=== PATIENT | female | born 1950 | race Caucasian/White ===

== ENCOUNTER 2021-03-31 10:24 | Inpatient (IN) | payer MEDICARE, SELFPAY ==
[2021-03-31] VITALS (8 sets, daily range): BP systolic 81–152; BP diastolic 56–82; PULSE 61–91; RESP 14–28; TEMP 36.3–36.8; O2SAT 94–99; BMI 33.1
--- NOTE | ~2021-03-31 | XR_ITS ---
EXAMINATION: XR CHEST CLINICAL INFORMATION: Weakness. COMPARISON: None TECHNIQUE: Frontal view of the chest was obtained. FINDINGS: No significant abnormality is noted involving the heart, lungs, mediastinum, bony thorax or soft tissues. XR/XR chest 1V IMPRESSION: Unremarkable chest examination.
--- NOTE | ~2021-03-31 | US_ITS ---
EXAMINATION: US ABDOMEN COMPLETE CLINICAL INFORMATION: Vomiting, weakness, abnormal LFTs. COMPARISON: CT scan of the abdomen and pelvis dated 03/31/2021. TECHNIQUE: Real-time imaging of the abdominal viscera. FINDINGS: PANCREAS: Normal. ABDOMINAL AORTA: The proximal, mid, and distal segments are normal in caliber. INFERIOR VENA CAVA: Visualized portions are normal. LIVER: There is a 0.9 x 0.8 x 0.8 cm simple cyst in the right lobe of the liver The liver is normal in size. The liver contour is normal. Parenchymal echogenicity is normal. No focal hepatic lesion. There is no intrahepatic biliary duct dilatation seen. GALLBLADDER: The gallbladder is poorly visualized and is replaced by the wall echo shadow sign in the right upper quadrant, suspicious for multiple calcified gallstones. The gallbladder is physiologically distended without evidence of stones, sludge, polyps, wall thickening or pericholecystic fluid. COMMON BILE DUCT: Normal in caliber measuring 0.6 cm in diameter. RIGHT KIDNEY: Slight fullness of the renal pelvis is seen. No hydronephrosis. No renal calculi or focal parenchymal lesions. The kidney measures 11.5 cm in maximum dimension. LEFT KIDNEY: Slight fullness of the renal pelvis is seen. No hydronephrosis. No renal calculi or focal parenchymal lesions. The kidney measures 11.3 cm in maximum dimension. SPLEEN: Normal. The spleen measures 12.7 cm in maximum dimension. FREE FLUID: None. US/US abdomen complete IMPRESSION: 1. Multiple gallstones are seen within a contracted gallbladder producing a wall echo shadow sign. No gallbladder wall thickening or very cholecystic fluid is demonstrated to suspect acute inflammation. Clinical correlation requested. 2. No evidence of biliary dilatation. 3. Small cyst in right lobe of the liver. 4. Slight fullness of the renal pelvis bilaterally without hydronephrosis seen.
--- NOTE | ~2021-03-31 | CT_ITS ---
EXAMINATION: CT ABDOMEN AND PELVIS WITHOUT CONTRAST CLINICAL INFORMATION: vomiting, weakness, JACINTO r/o obstruction . COMPARISON: No pertinent prior studies are available for comparison. TECHNIQUE: Multidetector volumetric imaging was performed from the superior aspect of the liver through the pubic symphysis without contrast per request. Sagittal and coronal reformatted images were obtained on the technologist workstation. This CT examination was performed using dose optimization techniques as appropriate, variously including the following: *Automated exposure control *Adjustment of mA and/or kV according to patient size (this includes techniques or standardized protocols for targeted exams where dose is matched to indication/reason for exam; i.e. extremities or head) *Use of iterative reconstruction technique DLP: 858 mGy-cm. FINDINGS: LUNG BASES: The visualized lung bases are unremarkable. LIVER, GALLBLADDER, BILIARY TREE: The non-contrast liver is normal in size, shape, and attenuation. Low-attenuation probable cyst in the lateral right lobe the liver difficult to define further on this study but otherwise no suspicious focal hepatic lesion or biliary ductal dilatation is present. The gallbladder is unremarkable with no evidence of radiopaque gallstones, gallbladder wall thickening, or obvious pericholecystic inflammatory changes. PANCREAS: Unremarkable. SPLEEN: Unremarkable. ADRENAL GLANDS: Unremarkable. KIDNEYS AND URETERS: The kidneys are normal in size, shape, and attenuation. No hydronephrosis, hydroureter, or calculi seen. No perinephric stranding. BLADDER: Unremarkable. GASTROINTESTINAL TRACT: Scattered colonic diverticulosis but no evidence for diverticulitis. No colonic wall thickening or pericolonic inflammatory changes. Normal-appearing appendix. Visualized small bowel unremarkable. ABDOMINAL WALL: Small fat-containing umbilical hernia LYMPHOVASCULAR STRUCTURES: Mild vascular calcification within the aorta iliac system. No bulky adenopathy. PELVIC VISCERA: Lobulated contour to the uterus suggesting probable posterior fibroid OSSEUS STRUCTURES: Degenerative changes in the spine more so at L4/5. There is more significant endplate sclerosis, volume loss and vacuum phenomena CT/CT abdomen pelvis wo con IMPRESSION: Chronic appearing changes as described. I do not appreciate any acute intra-abdominal process.
--- NOTE | 2021-03-31 11:02 | ECG_ITS ---
Test Reason : HYPOTENSION Blood Pressure : / mmHG Vent. Rate : 075 BPM Atrial Rate : 075 BPM P-R Int : 212 ms QRS Dur : 094 ms QT Int : 386 ms P-R-T Axes : 078 -29 017 degrees QTc Int : 431 ms Sinus rhythm with 1st degree A-V block Otherwise normal ECG No previous ECGs available Referred By: Susie Lopez Electronically Signed By:ALANA RACHEL
--- NOTE | 2021-03-31 11:03 | ED_ITS ---
HPI - Nausea/Vomiting/Diarrhea General Chief complaint: Nausea/Vomiting/Diarrhea Stated complaint: vomiting/diarrea Time Seen by Provider: 03/31/21 11:01 Source: patient Mode of arrival: ambulatory History of Present Illness HPI Narrative: 71 yo female otherwise healthy has been on bactrim for 4 days for possible UTI, 2 weeks ago had a self limiting GI illness, also had tick on her for a day 1 month ago, she comes in after 4 days of nausea, vomiting, weakness, constipation, headaches, feels very weak and lightheaded this AM MD elicited complaint: nausea and vomiting Pertinent past history: other (recent UTI on bactrim x 4 days, bit by tick 1 month ago) Onset (ago): day(s) (4) Description of vomiting: food contents and watery Associated nausea: Yes Associated abdominal pain: No Severity: severe Exacerbating factors: eating Relieving factors: none Context: recent antibiotic use Associated symptoms: myalgias, fever/chills, headaches, loss of appetite, ma laise, nausea/vomiting and weakness Related Data Allergies Allergy/AdvReac Type Severity Reaction Status Date / Time Milk Containing Products Allergy Vomiting Verified 03/31/21 10:58 Review of Systems 2 Review of Systems: Constitutional : No Weight loss, No Fever, pos Chills ENT/Mouth : No sore throat, No Rhinorrhea Eyes: No Swelling, No Redness Cardiovascular : No Chest Pain, No SOB, NoEdema Respiratory : No Cough, No Sputum, No Wheezing Gastrointestinal : Positive Nausea, Positive Vomiting, no Diarrhea, no abdominal Pain, No Hematochezia, No Melena, pos constipation Genitourinary : No Dysuria, No Urinary Frequency, No Hematuria, No Urgency Musculoskeletal : No joint pain, No Myalgias, No Joint Swelling Skin : No Skin Lesions, No rash Neuro : pos Weakness, No Numbness, pos Dizziness, pos Headache Psych : No Anxiety/Panic, No Depression Heme/Lymph: No Bruising, No Lymphadenopathy Endocrine : No Polyuria, No Polydipsia All other systems reviewed and are negative. Gastrointestinal: Gastrointestinal: Reports nausea PMFSH Past Medical History Attestation statement: The following information was validated with the patient. Medical History No known health problems Osteoarthritis UTI (urinary tract infection) Surgical History (Updated 03/31/21 @ 11:21 by Susie Lopez DO) History of total bilateral knee replacement (TKR) Social History Social History (Updated 03/31/21 @ 11:21 by Susie Lopez DO) Alcohol intake: never Patient Tobacco Use Status: Never used Tobacco Use of substances other than those prescribed or required for medical reasons: No Advance Directives: Yes Advance Directives Information Provided: Yes Advance Directives on File: No Physical Exam Vital Signs: Vital Signs: Last Vital Signs Temp 98.2 F 03/31/21 12:42 Pulse 84 03/31/21 12:42 Resp 26 H 03/31/21 12:42 BP 146/65 H 03/31/21 12:42 Pulse Ox 99 03/31/21 12:42 Body Mass Index 33.1 Appearance: Alert. Oriented X3. Mild acute distress. Eyes: Pupils equal, round and reactive to light. ENT: Pharynx dry MMM Neck: Normal inspection. Neck supple. CVS: Normal heart rate and rhythm. Pulses normal. Respiratory: No respiratory distress. Breath sounds normal. Abdomen: Soft and non-tender. Skin: Skin warm and dry. pale skin color. Normal skin turgor. Extremities: No lower extremity edema. No calf ttp Neuro: Oriented X 3. No motor deficit. No sensory deficit. Course Course Course Narrative: UA negative for infection, CXR negative, dehydrated, US of liver pending given the degree of belching/nausea she is having will obtain CT scan to r/o obstruction as well negative CT scan for obstruction or stone - US likely to provide benefit she is still nauseated with emesis in ED repeat medications, admit for further management at this time 217pm no obvious source of infection her LFTs, JACINTO likely related to dehydration and not infection or severe sepsis. gallstones on US message sent to Dr. Skelton to review, again the patient has no abdominal pain MDM - Nausea/Vomiting/Diarrhea MDM Narrative Medical decision making narrative: 71 yo female otherwise healthy has been on bactrim for 4 days for possible UTI, 2 weeks ago had a self limiting GI illness, also had tick on her for a day 1 month ago, she comes in after 4 days of nausea, vomiting, weakness, constipation, headaches, feels very weak and lightheaded this AM at this time could be resistant UTI vs dehydration vs JACINTO - will obtain labs, EKG, IVF 30cc/kg bolus, tick panel, EKG, no abdominal pain to suggest acute intra abdominal infection, already had COVID and has had her 2 vaccines, dispo per results and findings. Lab Data Result diagrams: 03/31/21 11:42 03/31/21 11:42 Labs: Lab Results 03/31/21 03/31/21 03/31/21 Range/Units 11:42 11:42 11:42 WBC 5.3 (4.8-10.8) X10*3/uL RBC 4.51 (4.20-5.50) X10*6/uL Hgb 12.8 (12.0-16.0) g/dl Hct 37.4 (37-47) % MCV 82.9 (80-98) fL MCH 28.4 (27.0-33.0) pg MCHC 34.2 (31.0-35.0) g/dl RDW 14.5 (11.0-16.0) % Plt Count 217 (160-400) X10*3/uL MPV 9.2 L (9.4-12.3) fL Immature Gran % (Auto) 0.6 H (0.0-0.4) % Neut % (Auto) 88.3 H (45-73) % Lymph % (Auto) 6.4 L (20-40) % [place] % (Auto) 4.3 (2-11) % Eos % (Auto) 0.4 (0-4) % Baso % (Auto) 0.0 (0-2) % Lymph # (Auto) 0.3 L (1.2-4.9) X10*3/uL [place] # (Auto) 0.2 (0.1-1.2) X10*3/uL Eos # (Auto) 0.0 (0.0-0.4) X10*3/uL Baso # (Auto) 0.0 (0.0-0.2) X10*3/uL Abs Immat Gran (auto) 0.03 (0.00-0.03) X10*3/uL Absolute Neuts (auto) 4.7 (2.0-8.3) X10*3/uL Absolute Nucleated RBC 0.000 (0.0-0.012) X10*3/uL Nucleated RBC % (auto) 0.0 (0.0-0.2) /100WBC Smear Tech's Comments VERIFIED PT 13.6 H (10.8-13.0) SEC INR 1.1 (0.9-1.1) APTT 30.6 (24.1-38.0) SEC Sodium 136 (135-145) mmol/L Potassium 3.9 (3.3-5.1) mmol/L Chloride 104 (96-108) mmol/L Carbon Dioxide 18 L (22-29) mmol/L Anion Gap 18 (12-20) BUN 35 H (9-16) mg/dL Creatinine 2.12 H (0.5-1.4) mg/dL Estim Creat Clear Calc 29.0 Estimated GFR 23 Random Glucose 112 (60-115) mg/dL Lactic Acid (0.5-2.0) mmol/L Lactic Acid Fup @ 2Hr (0.5-2.0) mmol/L Calcium 8.3 L (8.4-10.2) mg/dL Magnesium 2.1 (1.6-2.6) mg/dL Total Bilirubin 2.1 H (0.0-1.0) mg/dL Direct Bilirubin 1.6 H (0.0-0.5) mg/dL AST 124 H (5-31) U/L ALT 130 H (0-31) U/L Alkaline Phosphatase 303 H (39-117) U/L Troponin I High Sens (<3.5-17.0) ng/L Total Protein 6.6 (6.5-8.0) g/dL Albumin 3.2 L (3.5-5.0) g/dL Lipase 20 (8-78) U/L Urine Color Urine Appearance Urine pH (5.0-8.0) Ur Specific [place] (1.005-1.025) Urine Protein (NEG-TRACE) MG/DL Urine Glucose (UA) (NEG) MG/DL Urine Ketones (NEG) MG/DL Urine Blood (NEG) Urine Nitrite (NEG) Ur Leukocyte Esterase (NEG) Urine RBC (0) /HPF Urine WBC (0-4) /HPF Ur Squamous Epith Cells /LPF Amorphous Sediment /LPF Urine Bacteria /LPF Granular Casts /LPF Other Casts /LPF COVID-19 (GABRIELA) (Negative) COVID-19 Clin Com 06/20/21 06/20/21 06/20/21 Range/Units 11:42 11:42 11:44 WBC (4.8-10.8) X10*3/uL RBC (4.20-5.50) X10*6/uL Hgb (12.0-16.0) g/dl Hct (37-47) % MCV (80-98) fL MCH (27.0-33.0) pg MCHC (31.0-35.0) g/dl RDW (11.0-16.0) % Plt Count (160-400) X10*3/uL MPV (9.4-12.3) fL Immature Gran % (Auto) (0.0-0.4) % Neut % (Auto) (45-73) % Lymph % (Auto) (20-40) % [place] % (Auto) (2-11) % Eos % (Auto) (0-4) % Baso % (Auto) (0-2) % Lymph # (Auto) (1.2-4.9) X10*3/uL [place] # (Auto) (0.1-1.2) X10*3/uL Eos # (Auto) (0.0-0.4) X10*3/uL Baso # (Auto) (0.0-0.2) X10*3/uL Abs Immat Gran (auto) (0.00-0.03) X10*3/uL Absolute Neuts (auto) (2.0-8.3) X10*3/uL Absolute Nucleated RBC (0.0-0.012) X10*3/uL Nucleated RBC % (auto) (0.0-0.2) /100WBC Smear Tech's Comments PT (10.8-13.0) SEC INR (0.9-1.1) APTT (24.1-38.0) SEC Sodium (135-145) mmol/L Potassium (3.3-5.1) mmol/L Chloride (96-108) mmol/L Carbon Dioxide (22-29) mmol/L Anion Gap (12-20) BUN (9-16) mg/dL Creatinine (0.5-1.4) mg/dL Estim Creat Clear Calc Estimated GFR Random Glucose (60-115) mg/dL Lactic Acid 2.9 H* (0.5-2.0) mmol/L Lactic Acid Fup @ 2Hr (0.5-2.0) mmol/L Calcium (8.4-10.2) mg/dL Magnesium (1.6-2.6) mg/dL Total Bilirubin (0.0-1.0) mg/dL Direct Bilirubin (0.0-0.5) mg/dL AST (5-31) U/L ALT (0-31) U/L Alkaline Phosphatase (39-117) U/L Troponin I High Sens < 3.5 (<3.5-17.0) ng/L Total Protein (6.5-8.0) g/dL Albumin (3.5-5.0) g/dL Lipase (8-78) U/L Urine Color Urine Appearance Urine pH (5.0-8.0) Ur Specific [place] (1.005-1.025) Urine Protein (NEG-TRACE) MG/DL Urine Glucose (UA) (NEG) MG/DL Urine Ketones (NEG) MG/DL Urine Blood (NEG) Urine Nitrite (NEG) Ur Leukocyte Esterase (NEG) Urine RBC (0) /HPF Urine WBC (0-4) /HPF Ur Squamous Epith Cells /LPF Amorphous Sediment /LPF Urine Bacteria /LPF Granular Casts /LPF Other Casts /LPF COVID-19 (GABRIELA) Negative (Negative) COVID-19 Clin Com See Note 03/31/21 03/31/21 Range/Units 11:58 14:21 WBC (4.8-10.8) X10*3/uL RBC (4.20-5.50) X10*6/uL Hgb (12.0-16.0) g/dl Hct (37-47) % MCV (80-98) fL MCH (27.0-33.0) pg MCHC (31.0-35.0) g/dl RDW (11.0-16.0) % Plt Count (160-400) X10*3/uL MPV (9.4-12.3) fL Immature Gran % (Auto) (0.0-0.4) % Neut % (Auto) (45-73) % Lymph % (Auto) (20-40) % [place] % (Auto) (2-11) % Eos % (Auto) (0-4) % Baso % (Auto) (0-2) % Lymph # (Auto) (1.2-4.9) X10*3/uL [place] # (Auto) (0.1-1.2) X10*3/uL Eos # (Auto) (0.0-0.4) X10*3/uL Baso # (Auto) (0.0-0.2) X10*3/uL Abs Immat Gran (auto) (0.00-0.03) X10*3/uL Absolute Neuts (auto) (2.0-8.3) X10*3/uL Absolute Nucleated RBC (0.0-0.012) X10*3/uL Nucleated RBC % (auto) (0.0-0.2) /100WBC Smear Tech's Comments PT (10.8-13.0) SEC INR (0.9-1.1) APTT (24.1-38.0) SEC Sodium (135-145) mmol/L Potassium (3.3-5.1) mmol/L Chloride (96-108) mmol/L Carbon Dioxide (22-29) mmol/L Anion Gap (12-20) BUN (9-16) mg/dL Creatinine (0.5-1.4) mg/dL Estim Creat Clear Calc Estimated GFR Random Glucose (60-115) mg/dL Lactic Acid (0.5-2.0) mmol/L Lactic Acid Fup @ 2Hr 1.5 (0.5-2.0) mmol/L Calcium (8.4-10.2) mg/dL Magnesium (1.6-2.6) mg/dL Total Bilirubin (0.0-1.0) mg/dL Direct Bilirubin (0.0-0.5) mg/dL AST (5-31) U/L ALT (0-31) U/L Alkaline Phosphatase (39-117) U/L Troponin I High Sens (<3.5-17.0) ng/L Total Protein (6.5-8.0) g/dL Albumin (3.5-5.0) g/dL Lipase (8-78) U/L Urine Color DARK YELLOW Urine Appearance HAZY Urine pH 6.0 (5.0-8.0) Ur Specific [place] 1.020 (1.005-1.025) Urine Protein 1+ H (NEG-TRACE) MG/DL Urine Glucose (UA) 100 H (NEG) MG/DL Urine Ketones 5 (NEG) MG/DL Urine Blood TRACE (NEG) Urine Nitrite NEG (NEG) Ur Leukocyte Esterase NEG (NEG) Urine RBC 1-4 (0) /HPF Urine WBC 0 (0-4) /HPF Ur Squamous Epith Cells TRACE /LPF Amorphous Sediment 3+ /LPF Urine Bacteria TRACE /LPF Granular Casts 1-4 /LPF Other Casts 5-9 /LPF COVID-19 (GABRIELA) (Negative) COVID-19 Clin Com ECG Data Attestation: I personally reviewed and interpreted this ECG as follows: ECG interpretation date: 03/31/21 ECG interpretation time: 11:28 Interpretation: Rate: 75 Rhythm: NSR with 1st degree AVB [place]: left Normal P waves. 1st degree AVB Normal QRS complex. ST T wave : normal no TIM qTC: normal prior studies: no acute ischemia The study has been interpreted contemporaneously by me. . Critical Care Time Critical Care Time Critical Care Time: Yes Total Critical Care Time: 35 Attestation: 3L of IVF, resuscitation of hypotension Discharge Plan Discharge Clinical Impression: Vomiting, Acute dehydration, JACINTO (acute kidney injury), Acidosis, lactic, Abnormal LFTs, Gallstones Patient Disposition: Admitted As Inpatient
[2021-03-31] MEDS: ondansetron HCL 4 MG/2 ML VIAL IVPUSH ×2 (11:25→18:29)
[2021-03-31 11:52] LABS: Eosinophils Percent Auto 0.4 % (0-4); Hematocrit 37.4 % (37-47); Hemoglobin 12.8 g/dl (12.0-16.0); Imm Gran Abs Auto 0.03 X10*3/uL (0.00-0.03); Imm Gran Pct Auto 0.6 % (0.0-0.4); Lymphocytes Absolute Auto 0.3 X10*3/uL (1.2-4.9); Lymphocytes Percent Auto 6.4 % (20-40); MANUAL DIFF FLAG SCAN; Mean Corpuscular HGB Conc 34.2 g/dl (31.0-35.0); Mean Corpuscular Hemoglobin 28.4 pg (27.0-33.0); Mean Corpuscular Volume 82.9 fL (80-98); Mean Platelet Volume 9.2 fL (9.4-12.3); Monocytes Absolute Auto 0.2 X10*3/uL (0.1-1.2); Monocytes Percent Auto 4.3 % (2-11); Neutrophils Absolute Auto 4.7 X10*3/uL (2.0-8.3); Neutrophils Percent Auto 88.3 % (45-73); Platelet Count 217 X10*3/uL (160-400); Red Blood Count 4.51 X10*6/uL (4.20-5.50); Red Cell Distribution Width 14.5 % (11.0-16.0); SCAN SMEAR FLAG 1; White Blood Count 5.3 X10*3/uL (4.8-10.8)
[2021-03-31 12:01] LABS: INTERNATIONAL NORM RATIO 1.1 (0.9-1.1); Prothrombin Time 13.6 SEC (10.8-13.0)
[2021-03-31 12:04] LABS: Partial Thromboplastin Time 30.6 SEC (24.1-38.0)
[2021-03-31 12:07] LABS: COVID-19 Test Negative (Negative)
[2021-03-31 12:10] LABS: SLIDE REVIEW VERIFIED
[2021-03-31 12:21] LABS: Troponin-I High Sensitivity < 3.5 ng/L (<3.5-17.0)
[2021-03-31 12:22] LABS: Glucose Urine UA 100 MG/DL (NEG); Leukocyte Esterase Urine NEG (NEG); Nitrite Urine NEG (NEG); Urine Blood TRACE (NEG); Urine Ketones 5 MG/DL (NEG); Urine Protein 1+ MG/DL (NEG-TRACE)
[2021-03-31 12:24] LABS: Appearance Urine HAZY; Color Urine DARK YELLOW
[2021-03-31 12:27] LABS: Alanine Aminotransferase 130 U/L (0-31); Albumin Level 3.2 g/dL (3.5-5.0); Alkaline Phosphatase 303 U/L (39-117); Aspartate Amino Transferase 124 U/L (5-31); Bilirubin Direct 1.6 mg/dL (0.0-0.5); Bilirubin Total 2.1 mg/dL (0.0-1.0); Lipase 20 U/L (8-78); Magnesium 2.1 mg/dL (1.6-2.6); Total Protein 6.6 g/dL (6.5-8.0)
[2021-03-31 12:28] LABS: Lactic Acid 2.9 mmol/L (0.5-2.0)
[2021-03-31 12:35] LABS: Amorphous Sediment Urine 3+ /LPF; Bacteria Urine TRACE /LPF; Squamous Epithelial Cell Urine TRACE /LPF; WBC Urine 0 /HPF (0-4)
[2021-03-31 12:57] LABS: Anion Gap 18 (12-20); Blood Urea Nitrogen 35 mg/dL (9-16); Calcium 8.3 mg/dL (8.4-10.2); Carbon Dioxide 18 mmol/L (22-29); Chloride 104 mmol/L (96-108); Estimated Glomerular Filt Rate 23; Glucose Random 112 mg/dL (60-115); Potassium 3.9 mmol/L (3.3-5.1); Sodium 136 mmol/L (135-145)
[2021-03-31 13:48] LABS: Reflex Lactate? Lactic Acid Added
[2021-03-31] MEDS: diphenhydrAMINE HCL 50 MG/ML VIAL 25 MG IVPUSH (14:41)
[2021-03-31] MEDS: Metoclopramide HCl 10 MG/2 ML VIAL 5 MG IVPUSH (14:41)
[2021-03-31 14:45] LABS: ~Lactic Acid-LAB USE ONLY 1.5 mmol/L (0.5-2.0)
--- NOTE | 2021-03-31 15:31 | PM.IMHP ---
History of Present Illness Date of Service: 03/31/21 Chief Complaint: Nausea, vomiting This is a 71-year-old healthy female who presents to the emergency department with nausea and vomiting. Last ThursdayMarch 27 the patient was seen by her hazardous substances scientist. At that time she described some dysuria and was prescribed Bactrim for presumed UTI. Later that day she had a cheeseburger from [employer]. That evening she took her 1st dose of Bactrim. Since then she has had significant nausea and vomiting preventing her from tolerating any food or much to drink. She denies abdominal pain, reporting that she has generalized soreness in abdomen. She has had low-grade fever intermittently. She denies any diarrhea. She has no sick contacts. Of note she had a shorter GI illness a few weeks ago last approximately 24-48 hours. In addition she is concern because she had a tick bite approximately 1 month ago. Today she was feeling weak and lightheaded and this prompted her to come to the emergency department for evaluation. On arrival she was hypotensive with a blood pressure in 80s. Lab work was significant for creatinine of 2.12, lactic acid 2.9, elevated liver enzymes. She had repeat urinalysis which appears showed resolution of UTI. Her dysuria has improved as well. CT scan of the abdomen did not show any acute intra-abdominal process. She also had a abdominal ultrasound, results of which are pending at this time. She received 30 cc/kg bolus of normal saline with resolution of her lactic acidosis. She received Zofran, Benadryl, Reglan for her nausea and vomiting and has improved somewhat. Review of Systems Review of Systems: Yes all other systems are reviewed and are negative Constitutional: Constitutional: Denies chills Cardiovascular: Cardiovascular: Denies chest pain Respiratory: Respiratory: Denies cough Gastrointestinal: Gastrointestinal: Reports constipation, Denies diarrhea, Reports nausea and Reports vomiting Genitourinary: Genitourinary: Denies dysuria and Denies urinary incontinence [facility] Medical History No known health problems Osteoarthritis UTI (urinary tract infection) Functional capacity: independent ambulation Family History Father Heart disease Mother CHF (congestive heart failure) Family history: reviewed and not pertinent Surgical History History of total bilateral knee replacement (TKR) Social History Alcohol intake: never Patient Tobacco Use Status: Never used Tobacco Use of substances other than those prescribed or required for medical reasons: No Advance Directives: Yes Advance Directives Information Provided: Yes Advance Directives on File: No Meds Allergies Allergy/AdvReac Type Severity Reaction Status Date / Time Milk Containing Products Allergy Vomiting Verified 03/31/21 10:58 Physical Exam Vital Signs and Narrative: Vital Signs: Last Vital Signs Temp 98.2 F 03/31/21 12:42 Pulse 84 03/31/21 12:42 Resp 26 H 03/31/21 12:42 BP 146/65 H 03/31/21 12:42 Pulse Ox 99 03/31/21 12:42 Body Mass Index 33.1 Const: Nutritional Appearance: well nourished Orientation/consciousness: patient oriented x3 HENMT: Head: Yes normocephalic and Yes atraumatic Eyes: Sclerae: sclerae normal Chest: Chest palpation & inspection: normal inspection of the chest Resp: Effort & Inspection: normal respiratory effort and no respiratory distress Cardio: Rate: regular rate Rhythm: regular rhythm GI: Inspection: No distended Palpation (GI): Soft to palpation, nontender and no guarding Neuro: General: patient oriented x3 Cranial nerves: Yes CN's II-XII intact bilaterally and Yes Bilaterally intact EOM present Results Labs CBC and Chem 7: 03/31/21 11:42 03/31/21 11:42 Labs: Laboratory Results - last 24 hr 03/31/21 03/31/21 03/31/21 11:42 11:42 11:42 MCV 82.9 MCH 28.4 MCHC 34.2 RDW 14.5 Plt Count 217 MPV 9.2 L Immature Gran % (Auto) 0.6 H Neut % (Auto) 88.3 H Lymph % (Auto) 6.4 L [place] % (Auto) 4.3 Eos % (Auto) 0.4 Baso % (Auto) 0.0 Lymph # (Auto) 0.3 L [place] # (Auto) 0.2 Eos # (Auto) 0.0 Baso # (Auto) 0.0 Abs Immat Gran (auto) 0.03 Absolute Neuts (auto) 4.7 Absolute Nucleated RBC 0.000 Nucleated RBC % (auto) 0.0 Smear Tech's Comments VERIFIED PT 13.6 H INR 1.1 APTT 30.6 Anion Gap 18 Estim Creat Clear Calc 29.0 Estimated GFR 23 Random Glucose 112 Lactic Acid Lactic Acid Fup @ 2Hr Calcium 8.3 L Magnesium 2.1 Total Bilirubin 2.1 H Direct Bilirubin 1.6 H AST 124 H ALT 130 H Alkaline Phosphatase 303 H Troponin I High Sens Total Protein 6.6 Albumin 3.2 L Lipase 20 Urine Color Urine Appearance Urine pH Ur Specific [place] Urine Protein Urine Glucose (UA) Urine Ketones Urine Blood Urine Nitrite Ur Leukocyte Esterase Urine RBC Urine WBC Ur Squamous Epith Cells Amorphous Sediment Urine Bacteria Granular Casts Other Casts COVID-19 (GABRIELA) COVID-[employer] 03/31/21 03/31/21 03/31/21 11:42 11:42 11:44 MCV MCH MCHC RDW Plt Count MPV Immature Gran % (Auto) Neut % (Auto) Lymph % (Auto) [place] % (Auto) Eos % (Auto) Baso % (Auto) Lymph # (Auto) [place] # (Auto) Eos # (Auto) Baso # (Auto) Abs Immat Gran (auto) Absolute Neuts (auto) Absolute Nucleated RBC Nucleated RBC % (auto) Smear Tech's Comments PT INR APTT Anion Gap Estim Creat Clear Calc Estimated GFR Random Glucose Lactic Acid 2.9 H* Lactic Acid Fup @ 2Hr Calcium Magnesium Total Bilirubin Direct Bilirubin AST ALT Alkaline Phosphatase Troponin I High Sens < 3.5 Total Protein Albumin Lipase Urine Color Urine Appearance Urine pH Ur Specific [place] Urine Protein Urine Glucose (UA) Urine Ketones Urine Blood Urine Nitrite Ur Leukocyte Esterase Urine RBC Urine WBC Ur Squamous Epith Cells Amorphous Sediment Urine Bacteria Granular Casts Other Casts COVID-19 (GABRIELA) Negative COVID-19 frooly Com See Note 03/31/21 03/31/21 11:58 14:21 MCV MCH MCHC RDW Plt Count MPV Immature Gran % (Auto) Neut % (Auto) Lymph % (Auto) [place] % (Auto) Eos % (Auto) Baso % (Auto) Lymph # (Auto) [place] # (Auto) Eos # (Auto) Baso # (Auto) Abs Immat Gran (auto) Absolute Neuts (auto) Absolute Nucleated RBC Nucleated RBC % (auto) Smear Tech's Comments PT INR APTT Anion Gap Estim Creat Clear Calc Estimated GFR Random Glucose Lactic Acid Lactic Acid Fup @ 2Hr 1.5 Calcium Magnesium Total Bilirubin Direct Bilirubin AST ALT Alkaline Phosphatase Troponin I High Sens Total Protein Albumin Lipase Urine Color DARK YELLOW Urine Appearance HAZY Urine pH 6.0 Ur Specific [place] 1.020 Urine Protein 1+ H Urine Glucose (UA) 100 H Urine Ketones 5 Urine Blood TRACE Urine Nitrite NEG Ur Leukocyte Esterase NEG Urine RBC 1-4 Urine WBC 0 Ur Squamous Epith Cells TRACE Amorphous [place] 3+ Urine Bacteria TRACE Granular Casts 1-4 Other Casts 5-9 COVID-19 (GABRIELA) COVID-19 Clin Com Imaging Radiologist's Impressions: Impressions Chest X-Ray 03/31/21 12:40 IMPRESSION: Unremarkable chest examination. Abdomen/Pelvis CT 03/31/21 13:24 IMPRESSION: Chronic appearing changes as described. I do not appreciate any acute intra-abdominal process. Assessment and Plan (1) Vomiting: Qualifiers: Nausea presence: with nausea Vomiting Intractability: intractable Vomiting type: unspecified Qualified Code(s): R11.2 - Nausea with vomiting, unspecified Status: Acute (2) Abnormal LFTs: Status: Acute (3) Gallstones: Status: Acute (4) JACINTO (acute kidney injury): Status: Acute This is a 71-year-old healthy female who presents the emergency department with 4 days of nausea, vomiting found to have JACINTO, lactic acidosis, abnormal LFTs and gallstones. Intractable nausea and vomiting CT abdomen with no cause of symptoms ?antibiotic related abdominal US showing gallstones but no evidence of cholecystitis -supportive care -clear liquid diet, advanced as tolerated -IV fluid -general surgery eval JACINTO No baseline labs for comparison. Patient denies history of CKD CT abdomen shows no evidence of obstruction Likely pre renal secondary to dehydration, vomiting as well as recent Bactrim use -IV fluid -avoid nephrotoxins -follow BMP Elevated LFTs No baseline for comparison. No history of liver disease CT scan of abdomen unremarkable -follow LFTs UTI Has taken 4 days of Bactrim (although has been vomiting) Symptoms have improved. UA today not suggestive of infection CT abdomen shows no perinephric stranding or concern for pyelonephritis Will hold off on further antibiotics at this time Recent tick bit -tickborne panel pending DVT prophylaxis-renally dosed Lovenox Code status-full code Healthcare proxy - Ivan Attending: Dr. Emery Quality Stroke Does the patient have a stroke diagnosis?: No VTE Prior VTE?: No VTE Risk Level:: Medical - moderate - high VTE Device Contraindication: Treatment Not Tolerated VTE Drug Contraindication: N/A - Med Ordered
[2021-03-31] MEDS: Acetaminophen 325 MG TABLET 650 MG PO (15:49)
--- NOTE | 2021-03-31 16:07 | PC.NURSE ---
pt resting quietly in bed, at bedside. Hospitalist spoke with pt regarding admit to hospital for further work up. pt aware she is waiting for a bed assignment at this time. pt continues to report stomach discomfort. Tylenol 650 mg given for 4/10 headache and pt requested juice. No vomiting at this time.
--- NOTE | 2021-03-31 17:13 | PM.EVENT ---
Event Note Date of Service: 03/31/21 Event Note: addendum to H+P by PHILLIP Gomez I interviewed and examined the patient. I discussed their presentation and management with the mid-level provider. I reviewed the history and physical and agree with the documentation, with the following additions and corrections: 71yo F with no chronic conditions, no chronic medications. Seen by her HEALTH THERAPIST 03/27 and prescribed SMX/TMP for UTI [she had been experiencing some dysuria]. Soon after taking her 1st dose, she has had nausea and vomiting. No real abd pain, just soreness from the heaving. Unable to tolerate much of anything PO; not drinking much more than 6 ounces of fluid a day. Ended up taking 4 days of the SMX/TMP. Endorses lightheadedness and found on presentation to the ED to be hypotensive with SBP 80s, with lactic acidosis [LA 2.9], transaminitis/cholestasis with AST 124, ALT 130, Tbili 2.1, and alk phos 303. She had a deer tick on her arm about 1 month ago that was embedded but not engorged, estimated maximum time of attachment 12 hr. On exam, she is well-appearing and in no distress. Oral mucosa somewhat dry. BP 135/61. Abdomen completely soft with negative Breaux sign. Impression is of drug-induced liver injury likely due to SMX/TMP, with pre-renal JACINTO from vomiting. Plan IV fluid hydration and monitor CMP and avoid SMX/TMP.
[2021-03-31] MEDS: 0.9 % Sodium Chloride Flush 3 ML SYRINGE IVFLUSH (17:59)
[2021-03-31] MEDS: Lactated Ringers 1,000 ML 100 ML IVCONT (17:59)
[2021-03-31] MEDS: Enoxaparin Sodium 30 MG/0.3 ML SYRINGE SUBCUT (20:35)
[2021-03-31] MEDS: traZODone HCL 25 MG HALFTAB PO (21:11)
[2021-04-01] MEDS: Lactated Ringers 1,000 ML 100 ML IVCONT ×3 (03:39→23:08)
[2021-04-01] MEDS: Acetaminophen 325 MG TABLET 650 MG PO (03:44)
[2021-04-01 04:00] VITALS: BP 153/84; PULSE 69; RESP 18; TEMP 36.3; O2SAT 97
[2021-04-01 06:15] LABS: Hematocrit 34.8 % (37-47); Hemoglobin 11.4 g/dl (12.0-16.0); Mean Corpuscular HGB Conc 32.8 g/dl (31.0-35.0); Mean Corpuscular Hemoglobin 27.7 pg (27.0-33.0); Mean Corpuscular Volume 84.7 fL (80-98); Mean Platelet Volume 9.1 fL (9.4-12.3); Platelet Count 158 X10*3/uL (160-400); Red Blood Count 4.11 X10*6/uL (4.20-5.50); Red Cell Distribution Width 14.9 % (11.0-16.0); White Blood Count 5.4 X10*3/uL (4.8-10.8)
[2021-04-01 06:43] LABS: Alanine Aminotransferase 110 U/L (0-31); Albumin Level 2.9 g/dL (3.5-5.0); Alkaline Phosphatase 289 U/L (39-117); Anion Gap 11 (12-20); Aspartate Amino Transferase 93 U/L (5-31); Bilirubin Direct 1.2 mg/dL (0.0-0.5); Bilirubin Total 1.4 mg/dL (0.0-1.0); Blood Urea Nitrogen 24 mg/dL (9-16); Calcium 8.1 mg/dL (8.4-10.2); Carbon Dioxide 23 mmol/L (22-29); Chloride 107 mmol/L (96-108); Creatinine Clr Calc Pharmacy 43.9; Estimated Glomerular Filt Rate 37; Glucose Random 104 mg/dL (60-115); Potassium 3.9 mmol/L (3.3-5.1); Sodium 137 mmol/L (135-145); Total Protein 5.7 g/dL (6.5-8.0)
[2021-04-01 08:00] VITALS: BP 140/60; PULSE 76; RESP 18; TEMP 36; O2SAT 95
--- NOTE | 2021-04-01 09:36 | PM.CNGS ---
History of Present Illness Consult details Consult date: 04/01/21 Narrative: [age] year female referred for gallstones. She states that she had been having a lot of nausea and vomiting since about 4 days prior to admission. She says she has had poor oral intake for that period of time. She says she was in usual state of health prior to that and started taking Bactrim because of a urinary tract infection. She states that right after she started taking the oral Bactrim, she had this recurrent episodes of nausea and vomiting and dry heaving. This persisted and she eventually came to the emergency room last night. She does feel better this morning. Her main complaint now is a bad headache. She says she never really had any abdominal pain. She denies any pain or tenderness in right upper quadrant or epigastric area. She describes discomfort in the abdomen from the retching. She with signs of dehydration and had done mildly elevated lactate at 2.9. Review of Systems Constitutional: Constitutional: Denies chills and Denies fever(s) Cardiovascular: Cardiovascular: Denies chest pain, Denies dyspnea and Denies dyspnea on exertion Respiratory: Respiratory: Denies cough, Denies dyspnea and Denies dyspnea on exertion Gastrointestinal: Gastrointestinal: Denies hematochezia and Denies change in bowel habits Genitourinary: Genitourinary: Denies hematuria Musculoskeletal: Musculoskeletal: Denies back pain and Denies limited range of motion Neurologic: Denies focal weakness and Denies convulsions Psychiatric: Psychiatric: Denies depression and Denies mood swings PMFSH Past Medical History Medical History No known health problems Osteoarthritis UTI (urinary tract infection) Functional capacity: independent ambulation Family History Family History Father Heart disease Mother CHF (congestive heart failure) Family history: reviewed and not pertinent Surgical History Surgical History History of total bilateral knee replacement (TKR) Social History Social History Household Members: Spouse Housing: House Do you presently have visiting nurse or other home services: No Alcohol intake: never Patient Tobacco Use Status: Never used Tobacco Use of substances other than those prescribed or required for medical reasons: No Currently Displaying Signs/Symptoms of Drug Intoxication Withdrawal: No Have you been hit, kicked, punched, or otherwise hurt by someone within the past year? If so, by whom?: No Do you feel safe in your current relationship?: Yes Is there a partner from a previous relationship who is making you feel unsafe now?: No Are you made to feel afraid or neglected: No Advance Directives: Yes Advance Directives Information Provided: Yes Advance Directives on File: No Advance Directives Date on File: 03/31/21 Do you have thoughts of harming others: None Do you have a plan to hurt others: No Plan Recently lost weight without trying: No Nutrition Risks: No Nutritional Risk Meds Allergies Allergy/AdvReac Type Severity Reaction Status Date / Time Milk Containing Products Allergy Vomiting Verified 03/31/21 10:58 Active Medications: Current Medications Generic Name Dose Route Start Last Admin Trade Name Freq PRN Reason Stop Dose Admin Acetaminophen 650 mg 03/31/21 17:48 04/01/21 03:44 Acetaminophen 325 Mg Tablet PO 650 mg Q6H PRN Administration Pain, Mild (Pain Scale 1-3) Docusate Sodium 100 mg 03/31/21 17:48 Docusate Sodium 100 Mg Capsule PO DAILY PRN Constipation Enoxaparin Sodium 30 mg 03/31/21 20:00 03/31/21 20:35 Enoxaparin Sodium 30 Mg/0.3 Ml Syringe SUBCUT 30 mg Q24H LAURI Administration Lactated Ringer's 1,000 mls @ 100 mls/hr 03/31/21 17:48 04/01/21 03:39 Lr IVCONT 100 mls/hr .Q10H LAURI Administration Ondansetron HCl 4 mg 03/31/21 17:48 03/31/21 18:29 Ondansetron Hcl 4 Mg/2 Ml Vial IVPUSH 4 mg Q8H PRN Administration Nausea and Vomiting Sodium Chloride 3 ml 03/31/21 17:48 04/01/21 07:15 0.9 % Sodium Chloride Flush 3 Ml Syringe IVFLUSH Not Given QSHIFT [facility] Home Medications Medication Instructions Recorded Confirmed Last Taken Type No Known Home Meds 03/31/21 03/31/21 Unknown History Physical Exam Vital Signs: Vital Signs: Last Vital Signs Temp 96.8 F 04/01/21 08:00 Pulse 76 04/01/21 08:00 Resp 18 04/01/21 08:00 BP 140/60 H 04/01/21 08:00 Pulse Ox 95 04/01/21 08:00 Body Mass Index 33.1 Const: General: comfortable and no acute distress Orientation/consciousness: patient oriented x3 Neck: Neck: Yes no lymphadenopathy Resp: Auscultation: clear to auscultation bilaterally Cardio: Rhythm: regular rhythm GI: Other: No Breaux's sign Palpation (GI): Soft to palpation, nontender and no guarding Neuro: General: patient oriented x3 Results Labs Result diagrams: 04/01/21 06:02 04/01/21 06:02 Labs: Abnormal lab results 03/31/21 03/31/21 03/31/21 Range/Units 11:42 11:42 11:42 RBC (4.20-5.50) X10*6/uL Hgb (12.0-16.0) g/dl Hct (37-47) % Plt Count (160-400) X10*3/uL MPV 9.2 L (9.4-12.3) fL Immature Gran % (Auto) 0.6 H (0.0-0.4) % Neut % (Auto) 88.3 H (45-73) % Lymph % (Auto) 6.4 L (20-40) % Lymph # (Auto) 0.3 L (1.2-4.9) X10*3/uL PT 13.6 H (10.8-13.0) SEC Carbon Dioxide 18 L (22-29) mmol/L Anion Gap (12-20) BUN 35 H (9-16) mg/dL Creatinine 2.12 H (0.5-1.4) mg/dL Lactic Acid (0.5-2.0) mmol/L Calcium 8.3 L (8.4-10.2) mg/dL Total Bilirubin 2.1 H (0.0-1.0) mg/dL Direct Bilirubin 1.6 H (0.0-0.5) mg/dL AST 124 H (5-31) U/L ALT 130 H (0-31) U/L Alkaline Phosphatase 303 H (39-117) U/L Total Protein (6.5-8.0) g/dL Albumin 3.2 L (3.5-5.0) g/dL Urine Protein (NEG-TRACE) MG/DL Urine Glucose (UA) (NEG) MG/DL 03/31/21 03/31/21 04/01/21 Range/Units 11:42 11:58 06:02 RBC 4.11 L (4.20-5.50) X10*6/uL Hgb 11.4 L (12.0-16.0) g/dl Hct 34.8 L (37-47) % Plt Count 158 L D (160-400) X10*3/uL MPV 9.1 L (9.4-12.3) fL Immature Gran % (Auto) (0.0-0.4) % Neut % (Auto) (45-73) % Lymph % (Auto) (20-40) % Lymph # (Auto) (1.2-4.9) X10*3/uL PT (10.8-13.0) SEC Carbon Dioxide (22-29) mmol/L Anion Gap (12-20) BUN (9-16) mg/dL Creatinine (0.5-1.4) mg/dL Lactic Acid 2.9 H* (0.5-2.0) mmol/L Calcium (8.4-10.2) mg/dL Total Bilirubin (0.0-1.0) mg/dL Direct Bilirubin (0.0-0.5) mg/dL AST (5-31) U/L ALT (0-31) U/L Alkaline Phosphatase (39-117) U/L Total Protein (6.5-8.0) g/dL Albumin (3.5-5.0) g/dL Urine Protein 1+ H (NEG-TRACE) MG/DL Urine Glucose (UA) 100 H (NEG) MG/DL 04/01/21 Range/Units 06:02 RBC (4.20-5.50) X10*6/uL Hgb (12.0-16.0) g/dl Hct (37-47) % Plt Count (160-400) X10*3/uL MPV (9.4-12.3) fL Immature Gran % (Auto) (0.0-0.4) % Neut % (Auto) (45-73) % Lymph % (Auto) (20-40) % Lymph # (Auto) (1.2-4.9) X10*3/uL PT (10.8-13.0) SEC Carbon Dioxide (22-29) mmol/L Anion Gap 11 L (12-20) BUN 24 H (9-16) mg/dL Creatinine (0.5-1.4) mg/dL Lactic Acid (0.5-2.0) mmol/L Calcium 8.1 L (8.4-10.2) mg/dL Total Bilirubin 1.4 H (0.0-1.0) mg/dL Direct Bilirubin 1.2 H (0.0-0.5) mg/dL AST 93 H (5-31) U/L ALT 110 H (0-31) U/L Alkaline Phosphatase 289 H (39-117) U/L Total Protein 5.7 L (6.5-8.0) g/dL Albumin 2.9 L (3.5-5.0) g/dL Urine Protein (NEG-TRACE) MG/DL Urine Glucose (UA) (NEG) MG/DL Short CBC 03/31/21 04/01/21 Range/Units 11:42 06:02 WBC 5.3 5.4 (4.8-10.8) X10*3/uL Hgb 12.8 11.4 L (12.0-16.0) g/dl Hct 37.4 34.8 L (37-47) % Plt Count 217 158 L D (160-400) X10*3/uL BMP 03/31/21 04/01/21 04/01/21 11:42 06:02 06:02 Sodium 136 Cancelled 137 Potassium 3.9 Cancelled 3.9 Chloride 104 Cancelled 107 Carbon Dioxide 18 L Cancelled 23 BUN 35 H Cancelled 24 H Creatinine 2.12 H Cancelled 1.40 Calcium 8.3 L Cancelled 8.1 L Liver Function 03/31/21 04/01/21 Range/Units 11:42 06:02 Total Bilirubin 2.1 H 1.4 H (0.0-1.0) mg/dL Direct Bilirubin 1.6 H 1.2 H (0.0-0.5) mg/dL AST 124 H 93 H (5-31) U/L ALT 130 H 110 H (0-31) U/L Alkaline Phosphatase 303 H 289 H (39-117) U/L Albumin 3.2 L 2.9 L (3.5-5.0) g/dL Urine 03/31/21 Range/Units 11:58 Urine Color DARK YELLOW Urine Appearance HAZY Urine pH 6.0 (5.0-8.0) Ur Specific [place] 1.020 (1.005-1.025) Urine Protein 1+ H (NEG-TRACE) MG/DL Urine Glucose (UA) 100 H (NEG) MG/DL All other labs normal. Imaging Abdomen CT scan report/results: report reviewed and image reviewed CT scan - pelvis: report reviewed and image reviewed Abdominal ultrasound report/results: report reviewed and image reviewed Assessment and Plan (1) Gallstones: Status: Acute She actually came in because of a 4 day history of nausea and vomiting. She denies any abdominal pain. She associates onset of nausea vomiting after starting oral antibiotics for a UTI tract infection. She does state that she has had similar problems with multiple oral medications in the past. She does not have any pain or tenderness on the epigastric area of the right upper quadrant area. Her labs are very atypical for gallbladder disease despite her gallstones on imaging studies. There is no evidence of any acute cholecystitis. Her elevated lactate on admission is likely secondary to her dehydration from poor oral intake and vomiting. Her LFTs are also mildly elevated although there is no suggestion of CBD obstruction on the CT scan. Her LFTs should be followed therefore. It does not appear that she needs any urgent surgical intervention. I will however follow along closely while she is in the hospital. The above was explained to her and her daughter at bedside. Procedures Date of Service Date of Service: 04/01/21
--- NOTE | 2021-04-01 10:12 | MHC.CM.PN ---
IMM 04/01/21, EMR REVIEWED, PT ADMITTED WITH JACINTO, VOMITING AND ACUTE DEHYDRATION, CM MET W/PT AND HER DTR WHO WAS IN PT'S ROOM, PT SELWYN TO ANSWER ALL QUESTIONS INDEPENDENTLY, PT REPORTS SHE LIVES W/, DTR, GDTR AND HER ELDERLY MOTHER WHO PT TAKES CARE OF, PT IS INDEPENDENT W/ALL CARE, NO DME & NO HOME SERVICES, PER PT SHE HAS NO CONCERNS ABOUT BEING ABLE TO CARE FOR SELF OR HER MOTHER, PT'S DTR IS FILLING IN [place] [facility] [place] PT DOES VERIFY PCP AND REPORTS SHE WOULD LIKE TO COMPLETE HCP PRIOR TO D/C. D/C PLAN: HOME SELF-CARE, FAMILY FOR TRANSPORT : CRISTIN JOHN [phone] DTR: AMIRAH JOHN CELL: [phone]
[2021-04-01] MEDS: ondansetron HCL 4 MG/2 ML VIAL IVPUSH ×2 (11:24→19:18)
[2021-04-01 11:55] VITALS: BP 162/75; PULSE 90; RESP 18; TEMP 36; O2SAT 96
--- NOTE | 2021-04-01 12:20 | HO.PM.IMPN ---
Subjective Subjective Date of Service: 04/01/21 Interval History: ongoing nausea; no vomiting tolerating clears frontal DUMONT; declines APAP Physical Exam Vital Signs: Vital Signs: Last Vital Signs Temp 96.8 F 04/01/21 11:55 Pulse 90 04/01/21 11:55 Resp 18 04/01/21 11:55 BP 162/75 H 04/01/21 11:55 Pulse Ox 96 04/01/21 11:55 Body Mass Index 33.1 Gen: in no acute distress HEENT: sclera anicteric, moist mucus membranes Neck: supple Lungs: clear to auscultation bilaterally Heart: regular rate and rhythm, no murmurs Abd: soft, non-tender, non-distended Ext: no edema Skin: warm/well-perfused Neuro: alert and oriented x3, no focal findings Psych: appropriate affect Objective Data Current Medications Generic Name Dose Route Start Last Admin Trade Name Freq PRN Reason Stop Dose Admin Acetaminophen 650 mg 03/31/21 17:48 04/01/21 03:44 Acetaminophen 325 Mg Tablet PO 650 mg Q6H PRN Administration Pain, Mild (Pain Scale 1-3) Docusate Sodium 100 mg 03/31/21 17:48 Docusate Sodium 100 Mg Capsule PO DAILY PRN Constipation Enoxaparin Sodium 30 mg 03/31/21 20:00 03/31/21 20:35 Enoxaparin Sodium 30 Mg/0.3 Ml Syringe SUBCUT 30 mg Q24H LAURI Administration Lactated Ringer's 1,000 mls @ 100 mls/hr 03/31/21 17:48 04/01/21 03:39 Lr IVCONT 100 mls/hr .Q10H LAURI Administration Ondansetron HCl 4 mg 03/31/21 17:48 04/01/21 11:24 Ondansetron Hcl 4 Mg/2 Ml Vial IVPUSH 4 mg Q8H PRN Administration Nausea and Vomiting Sodium Chloride 3 ml 03/31/21 17:48 04/01/21 07:15 0.9 % Sodium Chloride Flush 3 Ml Syringe IVFLUSH Not Given QSHIFT [facility] Labs CBC & Chem 7: 04/01/21 06:02 04/01/21 06:02 Labs: Laboratory Results - last 24 hr 03/31/21 03/31/21 03/31/21 11:42 11:42 11:42 WBC RBC Hgb Hct MCV MCH MCHC RDW Plt Count MPV Absolute Nucleated RBC Nucleated RBC % (auto) Sodium 136 Potassium 3.9 Chloride 104 Carbon Dioxide 18 L Anion Gap 18 BUN 35 H Creatinine 2.12 H Estim Creat Clear Calc 29.0 Estimated GFR 23 Random Glucose 112 Lactic Acid 2.9 H* Lactic Acid Fup @ 2Hr Calcium 8.3 L Magnesium 2.1 Total Bilirubin 2.1 H Direct Bilirubin 1.6 H AST 124 H ALT 130 H Alkaline Phosphatase 303 H Troponin I High Sens < 3.5 Total Protein 6.6 Albumin 3.2 L Lipase 20 Urine Color Urine Appearance Urine pH Ur Specific [place] Urine Protein Urine Glucose (UA) Urine Ketones Urine Blood Urine Nitrite Ur Leukocyte Esterase Urine RBC Urine WBC Ur Squamous Epith Cells Amorphous Sediment Urine Bacteria Granular Casts Other Casts 03/31/21 03/31/21 04/01/21 11:58 14:21 06:02 WBC 5.4 RBC 4.11 L Hgb 11.4 L Hct 34.8 L MCV 84.7 MCH 27.7 MCHC 32.8 RDW 14.9 Plt Count 158 L D MPV 9.1 L Absolute Nucleated RBC 0.000 Nucleated RBC % (auto) 0.0 Sodium Potassium Chloride Carbon Dioxide Anion Gap BUN Creatinine Estim Creat Clear Calc Estimated GFR Random Glucose Lactic Acid Lactic Acid Fup @ 2Hr 1.5 Calcium Magnesium Total Bilirubin Direct Bilirubin AST ALT Alkaline Phosphatase Troponin I High Sens Total Protein Albumin Lipase Urine Color DARK YELLOW Urine Appearance HAZY Urine pH 6.0 Ur Specific [place] 1.020 Urine Protein 1+ H Urine Glucose (UA) 100 H Urine Ketones 5 Urine Blood TRACE Urine Nitrite NEG Ur Leukocyte Esterase NEG Urine RBC 1-4 Urine WBC 0 Ur Squamous Epith Cells TRACE Amorphous Sediment 3+ Urine Bacteria TRACE Granular Casts 1-4 Other Casts 5-9 04/01/21 04/01/21 06:02 06:02 WBC RBC Hgb Hct MCV MCH MCHC RDW Plt Count MPV Absolute Nucleated RBC Nucleated RBC % (auto) Sodium Cancelled 137 Potassium Cancelled 3.9 Chloride Cancelled 107 Carbon Dioxide Cancelled 23 Anion Gap Cancelled 11 L BUN Cancelled 24 H Creatinine Cancelled 1.40 Estim Creat Clear Calc Cancelled 43.9 Estimated GFR Cancelled 37 Random Glucose Cancelled 104 Lactic Acid Lactic Acid Fup @ 2Hr Calcium Cancelled 8.1 L Magnesium Total Bilirubin 1.4 H Direct Bilirubin 1.2 H AST 93 H ALT 110 H Alkaline Phosphatase 289 H Troponin I High Sens Total Protein 5.7 L Albumin 2.9 L Lipase Urine Color Urine Appearance Urine pH Ur Specific [place] Urine Protein Urine Glucose (UA) Urine Ketones Urine Blood Urine Nitrite Ur Leukocyte Esterase Urine RBC Urine WBC Ur Squamous Epith Cells Amorphous Sediment Urine Bacteria Granular Casts Other Casts Quality Stroke Does the patient have a stroke diagnosis?: No VTE Prior VTE?: No VTE Risk Level:: Medical - moderate - high VTE Device Contraindication: Treatment Not Tolerated VTE Drug Contraindication: N/A - Med Ordered Assessment and Plan (1) JACINTO (acute kidney injury): Status: Acute (2) Drug-induced liver injury: Status: Acute Assessment and Plan: hospital d#2 71yo F with no chronic medical conditions presenting with nausea, vomiting, and PO intolerance after starting SMX/TMP prescribed for UTI admitted for hypotension, lactic acidosis, hepatitis, and JACINTO # JACINTO - improving, though unknown baseline SCr; continue IV hydration; likely renal injury due to SMX/TMP + prerenal azotemia from vomiting; monitor BMP # drug-induced liver injury - LFTs improving; avoid SMX/TMP in future; monitor LFTs # N/V - clear liquids, prn ondansestron, advance diet as tolerated # lactic acidosis - not septic; due to dehydration; resolved with fluid hydration # tick bite - approx 1 mo ago with attachment 12 hr or less, so very unlikely Lyme. Anaplasma/Babesia/Ehrlichia pending though likely her presention is explained by adverse reaction to SMX/TMP # gallstones - doubt cholecystitis; her symptoms are explained by adverse reaction to SMX/TMP # VTE ppx - LMWH
--- NOTE | 2021-04-01 15:38 | PC.NURSE ---
Skin assessment completed today. No skin issues noted.
[2021-04-01 15:53] VITALS: BP 150/70; PULSE 68; RESP 18; TEMP 36.2; O2SAT 95
[2021-04-01 19:46] VITALS: BP 166/74; PULSE 68; RESP 17; TEMP 36.8; O2SAT 95
[2021-04-01 21:37] LABS: Lyme Blot 5.93 index
[2021-04-02 00:02] VITALS: BP 138/99; PULSE 66; RESP 18; TEMP 36.3; O2SAT 96
[2021-04-02 04:00] VITALS: BP 133/60; PULSE 60; RESP 18; TEMP 36.8; O2SAT 94
[2021-04-02 06:44] LABS: Alanine Aminotransferase 109 U/L (0-31); Albumin Level 2.8 g/dL (3.5-5.0); Alkaline Phosphatase 294 U/L (39-117); Anion Gap 12 (12-20); Aspartate Amino Transferase 76 U/L (5-31); Blood Urea Nitrogen 16 mg/dL (9-16); Calcium 8.1 mg/dL (8.4-10.2); Carbon Dioxide 24 mmol/L (22-29); Chloride 106 mmol/L (96-108); Creatinine Clr Calc Pharmacy 64.2; Estimated Glomerular Filt Rate 57; Glucose Random 95 mg/dL (60-115); Magnesium 1.7 mg/dL (1.6-2.6); Potassium 3.6 mmol/L (3.3-5.1); Sodium 138 mmol/L (135-145); Total Protein 5.6 g/dL (6.5-8.0)
[2021-04-02 07:49] VITALS: BP 182/79; PULSE 62; RESP 18; TEMP 36.1; O2SAT 97
[2021-04-02] MEDS: Lactated Ringers 1,000 ML 100 ML IVCONT ×2 (08:40→18:08)
[2021-04-02] MEDS: ondansetron HCL 4 MG/2 ML VIAL IVPUSH ×2 (08:45→17:00)
--- NOTE | 2021-04-02 10:36 | HO.PM.IMPN ---
Subjective Subjective Date of Service: 04/02/21 Interval History: still nauseous and c/o H/A. vomited 1x yesterday. would like to try solids cautiously. no abd pain, just sore from vomiting Physical Exam Vital Signs: Vital Signs: Last Vital Signs Temp 96.9 F 04/02/21 07:49 Pulse 62 04/02/21 07:49 Resp 18 04/02/21 07:49 BP 182/79 H 04/02/21 07:49 Pulse Ox 97 04/02/21 07:49 Body Mass Index 33.1 Gen: tired HEENT: sclera anicteric, moist mucus membranes Neck: supple Lungs: clear to auscultation bilaterally Heart: regular rate and rhythm, no murmurs Abd: soft, non-tender, non-distended, normal active bowel sounds present Ext: no edema Skin: warm/well-perfused Neuro: alert and oriented x3, no focal findings Psych: appropriate affect Objective Data Current Medications Generic Name Dose Route Start Last Admin Trade Name Freq PRN Reason Stop Dose Admin Acetaminophen 650 mg 03/31/21 17:48 04/01/21 03:44 Acetaminophen 325 Mg Tablet PO 650 mg Q6H PRN Administration Pain, Mild (Pain Scale 1-3) Docusate Sodium 100 mg 03/31/21 17:48 Docusate Sodium 100 Mg Capsule PO DAILY PRN Constipation Enoxaparin Sodium 30 mg 03/31/21 20:00 04/01/21 20:48 Enoxaparin Sodium 30 Mg/0.3 Ml Syringe SUBCUT Not Given Q24H LAURI Lactated Ringer's 1,000 mls @ 100 mls/hr 03/31/21 17:48 04/02/21 08:40 Lr IVCONT 100 mls/hr .Q10H LAURI Administration Ondansetron HCl 4 mg 03/31/21 17:48 04/02/21 08:45 Ondansetron Hcl 4 Mg/2 Ml Vial IVPUSH 4 mg Q8H PRN Administration Nausea and Vomiting Sodium Chloride 3 ml 03/31/21 17:48 04/02/21 08:41 0.9 % Sodium Chloride Flush 3 Ml Syringe IVFLUSH Not Given QSHIFT [facility] Labs CBC & Chem 7: 04/01/21 06:02 04/02/21 05:53 Labs: Laboratory Results - last 24 hr 03/31/21 04/02/21 11:43 05:53 Sodium 138 Potassium 3.6 Chloride 106 Carbon Dioxide 24 Anion Gap 12 BUN 16 Creatinine 0.96 Estim Creat Clear Calc 64.2 Estimated GFR 57 Random Glucose 95 Calcium 8.1 L Magnesium 1.7 Total Bilirubin 1.0 AST 76 H ALT 109 H Alkaline Phosphatase 294 H Total Protein 5.6 L Albumin 2.8 L Lyme Progressive Test 5.93 H Microbiology Microbiology Results: Microbiology 03/31/21 11:50 Blood Culture - Preliminary Blood - Venous No growth after 24 hours. 03/31/21 11:44 Blood Culture - Preliminary Blood - Venous No growth after 24 hours. Quality Stroke Does the patient have a stroke diagnosis?: No VTE Prior VTE?: No VTE Risk Level:: Medical - moderate - high VTE Device Contraindication: Treatment Not Tolerated VTE Drug Contraindication: N/A - Med Ordered Assessment and Plan (1) JACINTO (acute kidney injury): Status: Acute Assessment and Plan: Laboratory Tests 03/31/21 03/31/21 03/31/21 11:42 11:42 11:42 WBC 5.3 RBC 4.51 Hgb 12.8 Hct 37.4 MCV 82.9 MCH 28.4 MCHC 34.2 RDW 14.5 Plt Count 217 MPV 9.2 L Immature Gran % (Auto) 0.6 H Neut % (Auto) 88.3 H Lymph % (Auto) 6.4 L [place] % (Auto) 4.3 Eos % (Auto) 0.4 Baso % (Auto) 0.0 Lymph # (Auto) 0.3 L [place] # (Auto) 0.2 Eos # (Auto) 0.0 Baso # (Auto) 0.0 Abs Immat Gran (auto) 0.03 Absolute Neuts (auto) 4.7 Absolute Nucleated RBC 0.000 Nucleated RBC % (auto) 0.0 Smear Tech's Comments VERIFIED PT 13.6 H INR 1.1 APTT 30.6 Sodium 136 Potassium 3.9 Chloride 104 Carbon Dioxide 18 L Anion Gap 18 BUN 35 H Creatinine 2.12 H Estim Creat Clear Calc 29.0 Estimated GFR 23 Random Glucose 112 Lactic Acid Lactic Acid Fup @ 2Hr Calcium 8.3 L Magnesium 2.1 Total Bilirubin 2.1 H Direct Bilirubin 1.6 H AST 124 H ALT 130 H Alkaline Phosphatase 303 H Troponin I High Sens Total Protein 6.6 Albumin 3.2 L Lipase 20 Urine Color Urine Appearance Urine pH Ur Specific [place] Urine Protein Urine Glucose (UA) Urine Ketones Urine Blood Urine Nitrite Ur Leukocyte Esterase Urine RBC Urine WBC Ur Squamous Epith Cells Amorphous Sediment Urine Bacteria Granular Casts Other Casts [place] Progressive Test COVID-19 ([facility]) COVID-19 Clin Com 03/31/21 03/31/21 03/31/21 11:42 11:42 11:43 WBC RBC Hgb Hct MCV MCH MCHC RDW Plt Count MPV Immature Gran % (Auto) Neut % (Auto) Lymph % (Auto) [place] % (Auto) Eos % (Auto) Baso % (Auto) Lymph # (Auto) [place] # (Auto) Eos # (Auto) Baso # (Auto) Abs Immat Gran (auto) Absolute Neuts (auto) Absolute Nucleated RBC Nucleated RBC % (auto) Smear Tech's Comments PT INR APTT Sodium Potassium Chloride Carbon Dioxide Anion Gap BUN Creatinine Estim Creat Clear Calc Estimated GFR Random Glucose Lactic Acid 2.9 H* Lactic Acid Fup @ 2Hr Calcium Magnesium Total Bilirubin Direct Bilirubin AST ALT Alkaline Phosphatase Troponin I High Sens < 3.5 Total Protein Albumin Lipase Urine Color Urine Appearance Urine pH Ur Specific [place] Urine Protein Urine Glucose (UA) Urine Ketones Urine Blood Urine Nitrite Ur Leukocyte Esterase Urine RBC Urine WBC Ur Squamous Epith Cells Amorphous Sediment Urine Bacteria Granular Casts Other Casts Lyme Progressive Test 5.93 H COVID-19 ([facility]) COVID-19 [employer] Com 03/31/21 03/31/21 03/31/21 11:44 11:58 14:21 WBC RBC Hgb Hct MCV MCH MCHC RDW Plt Count MPV Immature Gran % (Auto) Neut % (Auto) Lymph % (Auto) [place] % (Auto) Eos % (Auto) Baso % (Auto) Lymph # (Auto) [place] # (Auto) Eos # (Auto) Baso # (Auto) Abs Immat Gran (auto) Absolute Neuts (auto) Absolute Nucleated RBC Nucleated RBC % (auto) Smear Tech's Comments PT INR APTT Sodium Potassium Chloride Carbon Dioxide Anion Gap BUN Creatinine Estim Creat Clear Calc Estimated GFR Random Glucose Lactic Acid Lactic Acid Fup @ 2Hr 1.5 Calcium Magnesium Total Bilirubin Direct Bilirubin AST ALT Alkaline Phosphatase Troponin I High Sens Total Protein Albumin Lipase Urine Color DARK YELLOW Urine Appearance HAZY Urine pH 6.0 Ur Specific [place] 1.020 Urine Protein 1+ H Urine Glucose (UA) 100 H Urine Ketones 5 Urine Blood TRACE Urine Nitrite NEG Ur Leukocyte Esterase NEG Urine RBC 1-4 Urine WBC 0 Ur Squamous Epith Cells TRACE Amorphous Sediment 3+ Urine Bacteria TRACE Granular Casts 1-4 Other Casts 5-9 Lyme Progressive Test COVID-19 ([facility]) Negative COVID-19 Clin Com See Note 04/01/21 04/01/21 04/01/21 06:02 06:02 06:02 WBC 5.4 RBC 4.11 L Hgb 11.4 L Hct 34.8 L MCV 84.7 MCH 27.7 MCHC 32.8 RDW 14.9 Plt Count 158 L D MPV 9.1 L Immature Gran % (Auto) Neut % (Auto) Lymph % (Auto) [place] % (Auto) Eos % (Auto) Baso % (Auto) Lymph # (Auto) [place] # (Auto) Eos # (Auto) Baso # (Auto) Abs Immat Gran (auto) Absolute Neuts (auto) Absolute Nucleated RBC 0.000 Nucleated RBC % (auto) 0.0 Smear Tech's Comments PT INR APTT Sodium Cancelled 137 Potassium Cancelled 3.9 Chloride Cancelled 107 Carbon Dioxide Cancelled 23 Anion Gap Cancelled 11 L BUN Cancelled 24 H Creatinine Cancelled 1.40 Estim Creat Clear Calc Cancelled 43.9 Estimated GFR Cancelled 37 Random Glucose Cancelled 104 Lactic Acid Lactic Acid Fup @ 2Hr Calcium Cancelled 8.1 L Magnesium Total Bilirubin 1.4 H Direct Bilirubin 1.2 H AST 93 H ALT 110 H Alkaline Phosphatase 289 H Troponin I High Sens Total Protein 5.7 L Albumin 2.9 L Lipase Urine Color Urine Appearance Urine pH Ur Specific [place] Urine Protein Urine Glucose (UA) Urine Ketones Urine Blood Urine Nitrite Ur Leukocyte Esterase Urine RBC Urine WBC Ur Squamous Epith Cells Amorphous Sediment Urine Bacteria Granular Casts Other Casts [place] Progressive Test COVID-19 ([facility]) COVID-19 Clin Com 04/02/21 05:53 WBC RBC Hgb Hct MCV MCH MCHC RDW Plt Count MPV Immature Gran % (Auto) Neut % (Auto) Lymph % (Auto) [place] % (Auto) Eos % (Auto) Baso % (Auto) Lymph # (Auto) [place] # (Auto) Eos # (Auto) Baso # (Auto) Abs Immat Gran (auto) Absolute Neuts (auto) Absolute Nucleated RBC Nucleated RBC % (auto) Smear Tech's Comments PT INR APTT Sodium 138 Potassium 3.6 Chloride 106 Carbon Dioxide 24 Anion Gap 12 BUN 16 Creatinine 0.96 Estim Creat Clear Calc 64.2 Estimated GFR 57 Random Glucose 95 Lactic Acid Lactic Acid Fup @ 2Hr Calcium 8.1 L Magnesium 1.7 Total Bilirubin 1.0 Direct Bilirubin AST 76 H ALT 109 H Alkaline Phosphatase 294 H Troponin I High Sens Total Protein 5.6 L Albumin 2.8 L Lipase Urine Color Urine Appearance Urine pH Ur Specific [place] Urine Protein Urine Glucose (UA) Urine Ketones Urine Blood Urine Nitrite Ur Leukocyte Esterase Urine RBC Urine WBC Ur Squamous Epith Cells Amorphous Sediment Urine Bacteria Granular Casts Other Casts Lyme Progressive Test COVID-19 ([facility]) COVID-19 Clin Com (2) Drug-induced liver injury: Status: Acute Assessment and Plan: hospital d#3 71yo F with no chronic medical conditions presenting with nausea, vomiting, and PO intolerance after starting SMX/TMP prescribed for UTI admitted for hypotension, lactic acidosis, hepatitis, and JACINTO # JACINTO - resolved with IV hydration; likely renal injury due to SMX/TMP + prerenal azotemia from vomiting # drug-induced liver injury - LFTs improving; avoid SMX/TMP in future; monitor LFTs # N/V - clear liquids, prn ondansestron, advance diet as tolerated # lactic acidosis - not septic; due to dehydration; resolved with fluid hydration # tick bite - approx 1 mo ago with attachment 12 hr or less, so very unlikely Lyme. Anaplasma/Babesia/Ehrlichia pending though likely her presention is explained by adverse reaction to SMX/TMP # gallstones - doubt cholecystitis; her symptoms are explained by adverse reaction to SMX/TMP # VTE ppx - LMWH
[2021-04-02 11:45] VITALS: BP 153/78; PULSE 65; RESP 18; TEMP 36.3; O2SAT 95
[2021-04-02] MEDS: Acetaminophen 325 MG TABLET 650 MG PO (11:45)
--- NOTE | 2021-04-02 14:08 | PM.PNGS ---
Subjective Subjective Date of Service: 04/02/21 Interval history: Feels much better No abdominal pain Physical Exam Vital Signs: Vital Signs: Last Vital Signs Temp 97.4 F 04/02/21 11:45 Pulse 65 04/02/21 11:45 Resp 18 04/02/21 11:45 BP 153/78 H 04/02/21 11:45 Pulse Ox 95 04/02/21 11:45 Body Mass Index 33.1 Laboratory Results - last 24 hr 03/31/21 04/02/21 11:43 05:53 Sodium 138 Potassium 3.6 Chloride 106 Carbon Dioxide 24 Anion Gap 12 BUN 16 Creatinine 0.96 Estim Creat Clear Calc 64.2 Estimated GFR 57 Random Glucose 95 Calcium 8.1 L Magnesium 1.7 Total Bilirubin 1.0 AST 76 H ALT 109 H Alkaline Phosphata se 294 H Total Protein 5.6 L Albumin 2.8 L [place]yme Progressive T est 5.93 H Const: Other: Ambulating well, General: comfortable and no acute distress Resp: Effort & Inspection: normal respiratory effort Cardio: Rhythm: regular rhythm GI: Palpation (GI): Soft to palpation and nontender Progress Note: A&P Assessment and plan (1) Drug-induced liver injury: Status: Acute Assessment and Plan: Symptoms unlikely to be from gallstones No cholecystitis No abdominal tenderness Continue current care Explained to patient - no indication for urgent cholecystectomy at this time Fall Risk Details Current Medications: Current Medications Generic Name Dose Route Start Last Admin Trade Name Freq PRN Reason Stop Dose Admin Acetaminophen 650 mg 03/31/21 17:48 04/02/21 11:45 Acetaminophen 325 Mg Tablet PO 650 mg Q6H PRN Administration Pain, Mild (Pain Scale 1-3) Docusate Sodium 100 mg 03/31/21 17:48 Docusate Sodium 100 Mg Capsule PO DAILY PRN Constipation Enoxaparin Sodium 30 mg 03/31/21 20:00 04/01/21 20:48 Enoxaparin Sodium 30 Mg/0.3 Ml Syringe SUBCUT Not Given Q24H LAURI Lactated Ringer's 1,000 mls @ 100 mls/hr 03/31/21 17:48 04/02/21 08:40 Lr IVCONT 100 mls/hr .Q10H LAURI Administration Ondansetron HCl 4 mg 03/31/21 17:48 04/02/21 08:45 Ondansetron Hcl 4 Mg/2 Ml Vial IVPUSH 4 mg Q8H PRN Administration Nausea and Vomiting Sodium Chloride 3 ml 03/31/21 17:48 04/02/21 08:41 0.9 % Sodium Chloride Flush 3 Ml Syringe IVFLUSH Not Given QSHIFT LAURI Time Spent With Patient Time: Total time spent is greater than 50% in coordination of care (as documented) at patient's floor/unit and/or counseling patient: Time with patient: 15 - 24 minutes Procedures Date of Service Date of Service: 04/02/21 Quality Stroke Does the patient have a stroke diagnosis?: No VTE Prior VTE?: No VTE Risk Level:: Medical - moderate - high VTE Device Contraindication: Treatment Not Tolerated VTE Drug Contraindication: N/A - Med Ordered
[2021-04-02 15:11] VITALS: BP 171/72; PULSE 64; RESP 16; TEMP 36.3; O2SAT 94
[2021-04-02 15:27] LABS: 18 KD (IgG) Band REACTIVE; 23 KD (IgG) Band NON-REACTIVE; 23 KD (IgM) Band NON-REACTIVE; 28 KD (IgG) Band REACTIVE; 30 KD (IgG) Band REACTIVE; 39 KD (IgM) Band NON-REACTIVE; 41 KD (IgM) Band NON-REACTIVE; 45 KD (IgG) Band NON-REACTIVE; 58 KD (IgG) Band REACTIVE; 66 KD (IgG) Band REACTIVE; 93 KD (IgG) Band REACTIVE; Lyme IgG Blot Interp POSITIVE (NEGATIVE); Lyme IgM Blot Interp NEGATIVE (NEGATIVE)
[2021-04-02] MEDS: Metoclopramide HCl 10 MG/2 ML VIAL 5 MG IVPUSH (22:31)
[2021-04-02 23:30] VITALS: BP 149/69; PULSE 63; RESP 18; TEMP 36.6; O2SAT 94
[2021-04-03 03:40] VITALS: BP 173/77; PULSE 64; RESP 18; TEMP 37.1; O2SAT 94
[2021-04-03] MEDS: Lactated Ringers 1,000 ML 100 ML IVCONT (03:55)
[2021-04-03 06:47] LABS: Alanine Aminotransferase 98 U/L (0-31); Albumin Level 2.9 g/dL (3.5-5.0); Alkaline Phosphatase 263 U/L (39-117); Anion Gap 12 (12-20); Aspartate Amino Transferase 70 U/L (5-31); Bilirubin Total 0.8 mg/dL (0.0-1.0); Blood Urea Nitrogen 12 mg/dL (9-16); Calcium 8.2 mg/dL (8.4-10.2); Carbon Dioxide 26 mmol/L (22-29); Chloride 104 mmol/L (96-108); Creatinine Clr Calc Pharmacy 74.2; Estimated Glomerular Filt Rate > 60; Glucose Random 108 mg/dL (60-115); Potassium 3.9 mmol/L (3.3-5.1); Sodium 138 mmol/L (135-145); Total Protein 5.6 g/dL (6.5-8.0)
[2021-04-03 07:39] VITALS: BP 168/74; PULSE 53; RESP 18; TEMP 36; O2SAT 95
[2021-04-03 09:50] LABS: Lyme Abs Screen POSITIVE
--- NOTE | 2021-04-03 11:06 | MHC.CM.PN ---
EMR REVIEWED, PER HOSPITALIST, PTS DIET WILL BE ADVANCED, IF PT TOLERATES REGULAR DIET MAY D/C LATER TODAY. D/C PLAN: HOME SELF-CARE, FAMILY FOR TRANSPORT
[2021-04-03 12:00] VITALS: BP 177/76; PULSE 57; RESP 18; TEMP 36.1; O2SAT 95
--- NOTE | 2021-04-03 15:04 | HO.PM.IMPN ---
Subjective Subjective Date of Service: 04/03/21 Interval History: still nauseous placed back on clears again last night threw up this morning- bilious would like to try solids again today Physical Exam Vital Signs: Vital Signs: Last Vital Signs Temp 96.9 F 04/03/21 12:00 Pulse 57 04/03/21 12:00 Resp 18 04/03/21 12:00 BP 177/76 H 04/03/21 12:00 Pulse Ox 95 04/03/21 12:00 Body Mass Index 33.1 Gen: tired HEENT: sclera anicteric, moist mucus membranes Neck: supple Lungs: clear to auscultation bilaterally Heart: regular rate and rhythm, no murmurs Abd: soft, non-tender, non-distended, normal active bowel sounds present Ext: no edema Skin: warm/well-perfused Neuro: alert and oriented x3, no focal findings Psych: appropriate affect Objective Data Current Medications Generic Name Dose Route Start Last Admin Trade Name Freq PRN Reason Stop Dose Admin Acetaminophen 650 mg 03/31/21 17:48 04/02/21 11:45 Acetaminophen 325 Mg Tablet PO 650 mg Q6H PRN Administration Pain, Mild (Pain Scale 1-3) Docusate Sodium 100 mg 03/31/21 17:48 Docusate Sodium 100 Mg Capsule PO DAILY PRN Constipation Enoxaparin Sodium 30 mg 03/31/21 20:00 04/02/21 21:04 Enoxaparin Sodium 30 Mg/0.3 Ml Syringe SUBCUT Not Given Q24H [facility] Ondansetron HCl 4 mg 03/31/21 17:48 04/02/21 17:00 Ondansetron Hcl 4 Mg/2 Ml Vial IVPUSH 4 mg Q8H PRN Administration Nausea and Vomiting Sodium Chloride 3 ml 03/31/21 17:48 04/03/21 07:10 0.9 % Sodium Chloride Flush 3 Ml Syringe IVFLUSH Not Given QSHIFT [facility] Labs CBC & Chem 7: 04/01/21 06:02 04/03/21 06:08 Labs: Laboratory Results - last 24 hr 03/31/21 04/03/21 11:43 06:08 Sodium 138 Potassium 3.9 Chloride 104 Carbon Dioxide 26 Anion Gap 12 BUN 12 Creatinine 0.83 Estim Creat Clear Calc 74.2 Estimated GFR > 60 Random Glucose 108 Calcium 8.2 L Total Bilirubin 0.8 AST 70 H ALT 98 H Alkaline Phosphatase 263 H Total Protein 5.6 L Albumin 2.9 L Lyme Screen IgG & IgM POSITIVE Lyme IgG 18 kDa Band REACTIVE A Lyme IgG 23 kDa Band NON-REACTIVE Lyme IgG 28 kDa Band REACTIVE A Lyme IgG 30 kDa Band REACTIVE A Lyme IgG 45 kDa Band NON-REACTIVE Lyme IgG 58 kDa Band REACTIVE A Lyme IgG 66 kDa Band REACTIVE A Lyme IgG 93 kDa Band REACTIVE A Lyme IgG Ab (Immblot) POSITIVE A Lyme IgM 23 kDa Band NON-REACTIVE Lyme IgM 39 kDa Band NON-REACTIVE Lyme IgM 41 kDa Band NON-REACTIVE Lyme IgM Interpretaton NEGATIVE Microbiology Microbiology Results: Microbiology 03/31/21 11:50 Blood Culture - Preliminary Blood - Venous No growth after 48 hours. 03/31/21 11:44 Blood Culture - Preliminary Blood - Venous No growth after 48 hours. Quality Stroke Does the patient have a stroke diagnosis?: No VTE Prior VTE?: No VTE Risk Level:: Medical - moderate - high VTE Device Contraindication: Treatment Not Tolerated VTE Drug Contraindication: N/A - Med Ordered Assessment and Plan (1) JACINTO (acute kidney injury): Status: Acute (2) Drug-induced liver injury: Status: Acute Assessment and Plan: hospital d#4 71yo F with no chronic medical conditions presenting with nausea, vomiting, and PO intolerance after starting SMX/TMP prescribed for UTI admitted for hypotension, lactic acidosis, hepatitis, and JACINTO # JACINTO - resolved with IV hydration; likely renal injury due to SMX/TMP + prerenal azotemia from vomiting # drug-induced liver injury - LFTs improving; avoid SMX/TMP in future; monitor LFTs # N/V - clear liquids, prn ondansestron, advance diet as tolerated # lactic acidosis - not septic; due to dehydration; resolved with fluid hydration # tick bite - approx 1 mo ago with attachment 12 hr or less, so very unlikely Lyme. Anaplasma/Babesia/Ehrlichia pending though likely her presention is explained by adverse reaction to SMX/TMP. 7 positive Lyme IgG bands by WB -> old infection? consult ID # gallstones - doubt cholecystitis; her symptoms are explained by adverse reaction to SMX/TMP # VTE ppx - LMWH
[2021-04-03 15:16] VITALS: BP 168/69; PULSE 75; RESP 19; TEMP 35.9; O2SAT 93
[2021-04-03] MEDS: 0.9 % Sodium Chloride Flush 3 ML SYRINGE IVFLUSH ×2 (16:38→23:20)
[2021-04-03] MEDS: ondansetron HCL 4 MG/2 ML VIAL IVPUSH (16:45)
[2021-04-03] MEDS: Acetaminophen 325 MG TABLET 650 MG PO (16:46)
[2021-04-03 19:15] VITALS: BP 155/65; PULSE 88; RESP 19; TEMP 37.1; O2SAT 97
--- NOTE | 2021-04-03 20:34 | PC.NURSE ---
P patient reports feeling worse this evening,vomited after dinner ,unable to tolerate diet I dr. Paez notified E will monitor
[2021-04-03 23:21] VITALS: BP 156/68; PULSE 55; RESP 16; TEMP 36.6; O2SAT 95
[2021-04-04 04:00] VITALS: BP 164/80; PULSE 62; RESP 16; TEMP 36.3; O2SAT 93
[2021-04-04 07:24] LABS: Alanine Aminotransferase 87 U/L (0-31); Albumin Level 2.9 g/dL (3.5-5.0); Alkaline Phosphatase 226 U/L (39-117); Aspartate Amino Transferase 50 U/L (5-31); Bilirubin Direct 0.6 mg/dL (0.0-0.5); Bilirubin Total 0.8 mg/dL (0.0-1.0); Total Protein 5.9 g/dL (6.5-8.0)
[2021-04-04 08:00] VITALS: BP 157/70; PULSE 57; RESP 18; TEMP 36.3; O2SAT 95
[2021-04-04] MEDS: 0.9 % Sodium Chloride Flush 3 ML SYRINGE IVFLUSH (09:03)
[2021-04-04] MEDS: Acetaminophen 325 MG TABLET 650 MG PO (09:13)
[2021-04-04 12:00] VITALS: BP 176/83; PULSE 53; RESP 18; TEMP 36.1; O2SAT 96
[2021-04-04] MEDS: ondansetron HCL 4 MG/2 ML VIAL IVPUSH (12:12)
[2021-04-04] MEDS: Butalb/Acetamin/Caff 50/325/40 TABLET 1 TAB PO (12:20)
[2021-04-04 14:53] VITALS: BP 155/69; PULSE 61; RESP 16; TEMP 36.3; O2SAT 95
--- NOTE | 2021-04-04 15:37 | P.F2F_ITS ---
Service Date Service Date: 04/04/21 Encounter Date of encounter: 04/04/21 Reasons for Services Reason for [facility]: medication management, medication treatment, teach disease management and other (lab monitoring) MD Overseeing Care: Yanely Cooper Homebound: Leaving the home is medically contraindicated at this time without the asist of a device and/or another person due th the listed conditions above and below. Reason homebound: weakness related to hospital stay Certification: Based on the above findings, I certify that this patient is confined to the home and needs intermittent [facility] care, physical therapy and/or speech therapy, or continues to need occupational therapy. The patient is under my care, and I have initiated the establishment of the plan of care. The patient will be followed by a physician who will periodically review the plan of care.
--- NOTE | 2021-04-04 15:45 | P.DS_ITS ---
DS: Providers Provider Date of Service: 04/04/21 Date of admission: 03/31/21 15:45 Primary care physician: Yanely Cooper MD Consults: 03/31/21 15:45 Consult to General Surgery Routine Consulting Provider: Remberto Skelton Reason for consultation: gallstones Has provider been notified: No 04/03/21 15:08 Consult to Infectious Diseases Routine Consulting Provider: Adrianna Ervin Reason for consultation: 7 positive Lyme IgG bands on WB; old/prior infection? DS: Diagnosis Discharge Diagnosis (1) JACINTO (acute kidney injury): Status: Acute (2) Drug-induced liver injury: Status: Acute (3) Adverse effect of sulfamethoxazole: Status: Acute DS: Medications Discharge Medications Home Medications: Previous Rx's Medication Instructions Recorded ondansetron 4 mg PO Q8H PRN #14 tab 04/02/21 xebghoacmt-breddonrqvmll-gazx 1 tab PO Q4H PRN #20 tab 04/04/21 doxycycline monohydrate 200 mg PO ONCE PRN #2 cap 04/04/21 DS: Summary Hospital Course Hospital Course: From admission history and physical by hospitalist PHILLIP Gmoez, 03/31/21: This is a 71-year-old healthy female who presents to the emergency department with nausea and vomiting. Last ThursdayMarch 27 the patient was seen by her childcare center director. At that time she described some dysuria and was prescribed Bactrim for presumed UTI. Later that day she had a cheeseburger from [facility]. That evening she took her 1st dose of Bactrim. Since then she has had significant nausea and vomiting preventing her from tolerating any food or much to drink. She denies abdominal pain, reporting that she has generalized soreness in abdomen. She has had low-grade fever intermittently. She denies any diarrhea. She has no sick contacts. Of note she had a shorter GI illness a few weeks ago last approximately 24-48 hours. In addition she is concern because she had a tick bite approximately 1 month ago. Today she was feeling weak and lightheaded and this prompted her to come to the emergency department for evalua tion. On arrival she was hypotensive with a blood pressure in 80s. Lab work was significant for creatinine of 2.12, lactic acid 2.9, elevated liver enzymes. She had repeat urinalysis which appears showed resolution of UTI. Her dysuria has improved as well. CT scan of the abdomen did not show any acute intra- abdominal process. She also had a abdominal ultrasound, results of which are pending at this time. She received 30 cc/kg bolus of normal saline with resolution of her lactic acidosis. She received Zofran, Benadryl, Reglan for her nausea and vomiting and has improved somewhat. And from my addendum: 71yo F with no chronic conditions, no chronic medications. Seen by her LIME HIDE INSPECTOR 03/27 and prescribed SMX/TMP for UTI [she had been experiencing some dysuria]. Soon after taking her 1st dose, she has had nausea and vomiting. No real abd pain, just soreness from the heaving. Unable to tolerate much of anything PO; not drinking much more than 6 ounces of fluid a day. Ended up taking 4 days of the SMX/TMP. Endorses lightheadedness and found on presentation to the ED to be hypotensive with SBP 80s, with lactic acidosis [LA 2.9], transaminitis/cholestasis with AST 124, ALT 130, Tbili 2.1, and alk phos 303. She had a deer tick on her arm about 1 month ago that was embedded but not engorged, estimated maximum time of attachment 12 hr. The patient was admitted to the medical surgical floor for hypotension, lactic acidosis, mild transminasemia, and acute kidney injury. She had severe headache, nausea and vomiting, and anorexia. Symptoms gradually resolved with IV hydration and withholding SMX/TMP. Transaminases also improved. Lactic acidosis resolved. Diet was gradually advanced. Workup for tickborne illness showed positive Western Blot for Lyme IgG; however, her presentation was most consistent with adverse reaction to SMX/TMP rather than tickborne illness. The ID acura sales consultant did not believe she needed treatment for any stage of Lyme disease. Gallstones on ultrasound were an incidental finding; she was not thought to have cholecystitis, and the search engine optimization consultant agreed with our assessment. Once her creatinine normalized and she was able to tolerate solid foods, she was discharged home with prescriptions for ondansetron and Fioricet. I did provide a prescription for prophylactic doxycycline 200 mg once prn tick attachment for 36+ hr, [place]. VNA services will be arranged and she should have a repeat set of labs [comprehensive metabolic panel, non-fasting] in 4-5 days and a follow-up appoin tment with her primary care doctor in 1-2 weeks. Time Spent with Patient Time attestation: Total time spent providing and/or coordinating discharge services: 45 Discharge coordination time: Greater than 30 minutes Quality: Stroke Does the patient have a stroke diagnosis?: No Physical Exam Vital Signs: Vital Signs: Last Vital Signs Temp 97.4 F 04/04/21 14:53 Pulse 61 04/04/21 14:53 Resp 16 04/04/21 14:53 BP 155/69 H 04/04/21 14:53 Pulse Ox 95 04/04/21 14:53 Body Mass Index 33.1 Gen: in no acute distress HEENT: sclera anicteric, moist mucus membranes Neck: supple Lungs: clear to auscultation bilaterally Heart: regular rate and rhythm, no murmurs Abd: soft, non-tender, non-distended Ext: no edema Skin: warm/well-perfused Neuro: alert and oriented x3, no focal findings Psych: appropriate affect DS: Data Data Completed and Pending Completed studies during hospitalization [Text1]: ITS Impressions Abdomen Ultrasound 03/31/21 12:29 IMPRESSION: 1. Multiple gallstones are seen within a contracted gallbladder producing a wall echo shadow sign. No gallbladder wall thickening or very cholecystic fluid is demonstrated to suspect acute inflammation. Clinical correlation requested. 2. No evidence of biliary dilatation. 3. Small cyst in right lobe of the liver. 4. Slight fullness of the renal pelvis bilaterally without hydronephrosis seen. Chest X-Ray 03/31/21 12:40 IMPRESSION: Unremarkable chest examination. Abdomen/Pelvis CT 03/31/21 13:24 IMPRESSION: Chronic appearing changes as described. I do not appreciate any acute intra-abdominal process. Laboratory Tests 03/31/21 03/31/21 03/31/21 11:42 11:42 11:42 WBC 5.3 RBC 4.51 Hgb 12.8 Hct 37.4 MCV 82.9 MCH 28.4 MCHC 34.2 RDW 14.5 Plt Count 217 MPV 9.2 L Immature Gran % (Auto) 0.6 H Neut % (Auto) 88.3 H Lymph % (Auto) 6.4 L [place] % (Auto) 4.3 Eos % (Auto) 0.4 Baso % (Auto) 0.0 Lymph # (Auto) 0.3 L [place] # (Auto) 0.2 Eos # (Auto) 0.0 Baso # (Auto) 0.0 Abs Immat Gran (auto) 0.03 Absolute Neuts (auto) 4.7 Absolute Nucleated RBC 0.000 Nucleated RBC % (auto) 0.0 Smear Tech's Comments VERIFIED PT 13.6 H INR 1.1 APTT 30.6 Sodium 136 Potassium 3.9 Chloride 104 Carbon Dioxide 18 L Anion Gap 18 BUN 35 H Creatinine 2.12 H Estim Creat Clear Calc 29.0 Estimated GFR 23 Random Glucose 112 Lactic Acid Lactic Acid Fup @ 2Hr Calcium 8.3 L Magnesium 2.1 Total Bilirubin 2.1 H Direct Bilirubin 1.6 H AST 124 H ALT 130 H Alkaline Phosphatase 303 H Troponin I High Sens Total Protein 6.6 Albumin 3.2 L Lipase 20 Urine Color Urine Appearance Urine pH Ur Specific [place] Urine Protein Urine Glucose (UA) Urine Ketones Urine Blood Urine Nitrite Ur Leukocyte Esterase Urine RBC Urine WBC Ur Squamous Epith Cells Amorphous Sediment Urine Bacteria Granular Casts Other Casts Lyme Screen IgG & IgM Lyme Progressive Test Lyme IgG 18 kDa Band Lyme IgG 23 kDa Band Lyme IgG 28 kDa Band Lyme IgG 30 kDa Band Lyme IgG 45 kDa Band Lyme IgG 58 kDa Band Lyme IgG 66 kDa Band Lyme IgG 93 kDa Band Lyme IgG Ab (Immblot) Lyme IgM 23 kDa Band Lyme IgM 39 kDa Band Lyme IgM 41 kDa Band Lyme IgM Interpretaton COVID-19 (GABRIELA) COVID-19 Clin Com 03/31/21 03/31/21 03/31/21 11:42 11:42 11:43 WBC RBC Hgb Hct MCV MCH MCHC RDW Plt Count MPV Immature Gran % (Auto) Neut % (Auto) Lymph % (Auto) [place] % (Auto) Eos % (Auto) Baso % (Auto) Lymph # (Auto) [place] # (Auto) Eos # (Auto) Baso # (Auto) Abs Immat Gran (auto) Absolute Neuts (auto) Absolute Nucleated RBC Nucleated RBC % (auto) Smear Tech's Comments PT INR APTT Sodium Potassium Chloride Carbon Dioxide Anion Gap BUN Creatinine Estim Creat Clear Calc Estimated GFR Random Glucose Lactic Acid 2.9 H* Lactic Acid Fup @ 2Hr Calcium Magnesium Total Bilirubin Direct Bilirubin AST ALT Alkaline Phosphatase Troponin I High Sens < 3.5 Total Protein Albumin Lipase Urine Color Urine Appearance Urine pH Ur Specific [place] Urine Protein Urine Glucose (UA) Urine Ketones Urine Blood Urine Nitrite Ur Leukocyte Esterase Urine RBC Urine WBC Ur Squamous Epith Cells Amorphous Sediment Urine Bacteria Granular Casts Other Casts Lyme Screen IgG & IgM POSITIVE Lyme Progressive Test 5.93 H Lyme IgG 18 kDa Band REACTIVE A Lyme IgG 23 kDa Band NON-REACTIVE Lyme IgG 28 kDa Band REACTIVE A Lyme IgG 30 kDa Band REACTIVE A Lyme IgG 45 kDa Band NON-REACTIVE Lyme IgG 58 kDa Band REACTIVE A Lyme IgG 66 kDa Band REACTIVE A Lyme IgG 93 kDa Band REACTIVE A Lyme IgG Ab (Immblot) POSITIVE A Lyme IgM 23 kDa Band NON-REACTIVE Lyme IgM 39 kDa Band NON-REACTIVE Lyme IgM 41 kDa Band NON-REACTIVE Lyme IgM Interpretaton NEGATIVE COVID-19 (GABRIELA) COVID-19 Clin Com 03/31/21 03/31/21 03/31/21 11:44 11:58 14:21 WBC RBC Hgb Hct MCV MCH MCHC RDW Plt Count MPV Immature Gran % (Auto) Neut % (Auto) Lymph % (Auto) [place] % (Auto) Eos % (Auto) Baso % (Auto) Lymph # (Auto) [place] # (Auto) Eos # (Auto) Baso # (Auto) Abs Immat Gran (auto) Absolute Neuts (auto) Absolute Nucleated RBC Nucleated RBC % (auto) Smear Tech's Comments PT INR APTT Sodium Potassium Chloride Carbon Dioxide Anion Gap BUN Creatinine Estim Creat Clear Calc Estimated GFR Random Glucose Lactic Acid Lactic Acid Fup @ 2Hr 1.5 Calcium Magnesium Total Bilirubin Direct Bilirubin AST ALT Alkaline Phosphatase Troponin I High Sens Total Protein Albumin Lipase Urine Color DARK YELLOW Urine Appearance HAZY Urine pH 6.0 Ur Specific [place] 1.020 Urine Protein 1+ H Urine Glucose (UA) 100 H Urine Ketones 5 Urine Blood TRACE Urine Nitrite NEG Ur Leukocyte Esterase NEG Urine RBC 1-4 Urine WBC 0 Ur Squamous Epith Cells TRACE Amorphous Sediment 3+ Urine Bacteria TRACE Granular Casts 1-4 Other Casts 5-9 Lyme Screen IgG & IgM Lyme Progressive Test Lyme IgG 18 kDa Band Lyme IgG 23 kDa Band Lyme IgG 28 kDa Band Lyme IgG 30 kDa Band Lyme IgG 45 kDa Band Lyme IgG 58 kDa Band Lyme IgG 66 kDa Band Lyme IgG 93 kDa Band Lyme IgG Ab (Immblot) Lyme IgM 23 kDa Band Lyme IgM 39 kDa Band Lyme IgM 41 kDa Band Lyme IgM Interpretaton COVID-19 (GABRIELA) Negative COVID-19 Clin Com See Note 04/01/21 04/01/21 04/01/21 06:02 06:02 06:02 WBC 5.4 RBC 4.11 L Hgb 11.4 L Hct 34.8 L MCV 84.7 MCH 27.7 MCHC 32.8 RDW 14.9 Plt Count 158 L D MPV 9.1 L Immature Gran % (Auto) Neut % (Auto) Lymph % (Auto) [place] % (Auto) Eos % (Auto) Baso % (Auto) Lymph # (Auto) [place] # (Auto) Eos # (Auto) Baso # (Auto) Abs Immat Gran (auto) Absolute Neuts (auto) Absolute Nucleated RBC 0.000 Nucleated RBC % (auto) 0.0 Smear Tech's Comments PT INR APTT Sodium Cancelled 137 Potassium Cancelled 3.9 Chloride Cancelled 107 Carbon Dioxide Cancelled 23 Anion Gap Cancelled 11 L BUN Cancelled 24 H Creatinine Cancelled 1.40 Estim Creat Clear Calc Cancelled 43.9 Estimated GFR Cancelled 37 Random Glucose Cancelled 104 Lactic Acid Lactic Acid Fup @ 2Hr Calcium Cancelled 8.1 L Magnesium Total Bilirubin 1.4 H Direct Bilirubin 1.2 H AST 93 H ALT 110 H Alkaline Phosphatase 289 H Troponin I High Sens Total Protein 5.7 L Albumin 2.9 L Lipase Urine Color Urine Appearance Urine pH Ur Specific [place] Urine Protein Urine Glucose (UA) Urine Ketones Urine Blood Urine Nitrite Ur Leukocyte Esterase Urine RBC Urine WBC Ur Squamous Epith Cells Amorphous Sediment Urine Bacteria Granular Casts Other Casts Lyme Screen IgG & IgM Lyme Progressive Test Lyme IgG 18 kDa Band Lyme IgG 23 kDa Band Lyme IgG 28 kDa Band Lyme IgG 30 kDa Band Lyme IgG 45 kDa Band Lyme IgG 58 kDa Band Lyme IgG 66 kDa Band Lyme IgG 93 kDa Band Lyme IgG Ab (Immblot) Lyme IgM 23 kDa Band Lyme IgM 39 kDa Band Lyme IgM 41 kDa Band Lyme IgM Interpretaton COVID-19 (GABRIELA) COVID-19 Clin Com 04/02/21 04/03/21 04/04/21 05:53 06:08 06:13 WBC RBC Hgb Hct MCV MCH MCHC RDW Plt Count MPV Immature Gran % (Auto) Neut % (Auto) Lymph % (Auto) [place] % (Auto) Eos % (Auto) Baso % (Auto) Lymph # (Auto) [place] # (Auto) Eos # (Auto) Baso # (Auto) Abs Immat Gran (auto) Absolute Neuts (auto) Absolute Nucleated RBC Nucleated RBC % (auto) Smear Tech's Comments PT INR APTT Sodium 138 138 Potassium 3.6 3.9 Chloride 106 104 Carbon Dioxide 24 26 Anion Gap 12 12 BUN 16 12 Creatinine 0.96 0.83 Estim Creat Clear Calc 64.2 74.2 Estimated GFR 57 > 60 Random Glucose 95 108 Lactic Acid Lactic Acid Fup @ 2Hr Calcium 8.1 L 8.2 L Magnesium 1.7 Total Bilirubin 1.0 0.8 0.8 Direct Bilirubin 0.6 H AST 76 H 70 H 50 H ALT 109 H 98 H 87 H Alkaline Phosphatase 294 H 263 H 226 H Troponin I High Sens Total Protein 5.6 L 5.6 L 5.9 L Albumin 2.8 L 2.9 L 2.9 L Lipase Urine Color Urine Appearance Urine pH Ur Specific [place] Urine Protein Urine Glucose (UA) Urine Ketones Urine Blood Urine Nitrite Ur Leukocyte Esterase Urine RBC Urine WBC Ur Squamous Epith Cells Amorphous Sediment Urine Bacteria Granular Casts Other Casts Lyme Screen IgG & IgM Lyme Progressive Test Lyme IgG 18 kDa Band Lyme IgG 23 kDa Band Lyme IgG 28 kDa Band Lyme IgG 30 kDa Band Lyme IgG 45 kDa Band Lyme IgG 58 kDa Band Lyme IgG 66 kDa Band Lyme IgG 93 kDa Band Lyme IgG Ab (Immblot) Lyme IgM 23 kDa Band Lyme IgM 39 kDa Band Lyme IgM 41 kDa Band Lyme IgM Interpretaton COVID-19 (GABRIELA) COVID-19 Clin Com Discharge Plan Discharge Patient Disposition: Home Health Service Discharge Diagnosis: acute kidney injury, drug-induced liver injury [due to Bactrim] incidental gallstones Referrals: [facility] [Outside] - 1 Week Yanely Cooper MD [Primary Care Provider] - 1 Week Discharge Medications: New ondansetron 4 mg tablet,disintegrating 4 mg PO Q8H PRN (Reason: nausea and vomiting) Qty: 14 RF: 0 iszumnfedu-qrevvkvtnlioj-urzy 50-325-40 mg Tablet 1 tab PO Q4H PRN (Reason: Headache) Qty: 20 RF: 0 doxycycline monohydrate 100 mg capsule 200 mg PO ONCE PRN (Reason: tick attached for more than 36 hours) Qty: 2 RF: 0 Discharge Orders: Discharge Order (Routine); Ordered 04/04/21 Ordered By: Christel Emery Diet: advance to usual diet Activity on Discharge: As tolerated Stand Alone Forms: Patient Portal Discharge page Other Ambulatory Orders: Comprehensive Met. Panel (Routine) Timeframe: 1 Week Facility: [facility] - Location: Laboratory Ordered By: Christel Emery Care Plan Goals: resolution of GI symptoms normalization of liver and kidney function avoidance of complications of gallstones Health Concerns: acute kidney injury, drug-induced liver injury [due to Bactrim] incidental gallstones Plan of Treatment: advance diet gradually and take ondansetron as needed for nausea and vomiting avoid fatty foods avoid Bactrim [also called Septra, co-trimoxazole, or sulfamethoxazole/trimethoprim] recheck labs [non-fasting comprehensive metabolic panel] in 1 week and follow up with your primary care doctor afterwards in case of an attached tick that is engorged [attached for more than 36 hours], consider taking doxycycline 200 mg once for prevention of Lyme disease Assessment: as above Patient Instructions: Gallstones (DC), Adverse Drug Reaction (ED)
[2021-04-06 00:46] LABS: Babesia IgG <1:64 titer (<1:64); Babesia IgM <1:20 titer (<1:20)
[2021-04-25 10:02] LABS: A. Phagocytophilum Ab IgG <1:64 (<1:64); A. Phagocytophilum Ab IgM <1:20 (<1:20); E. Chaffeensis Ab IgG <1:64 (<1:64); E. Chaffeensis Ab IgM <1:20 (<1:20)
== END 2021-04-04 17:10 | disposition home health service (06) | DRG 699 ==
LOC: HO.ED 13:25 → HO.EDOVER 16:18 → HO.S3 18:13
PROVIDERS: Admitting Provider Physician Assistant Medical; Emergency Provider Emergency Medicine; PCP Pediatrics; Visit Provider Family Medicine
DX: N14.1 Nephropathy induced by other drugs, medicaments and biological substances (principal); E87.2 Acidosis; N39.0 Urinary tract infection, site not specified; K71.9 Toxic liver disease, unspecified; K80.20 Calculus of gallbladder without cholecystitis without obstruction; N17.9 Acute kidney failure, unspecified; E86.0 Dehydration; T36.8X5A Adverse effect of other systemic antibiotics, initial encounter; Y92.9 Unspecified place or not applicable; Z20.822 Contact with and (suspected) exposure to COVID-19; Z88.2 Allergy status to sulfonamides; Z79.899 Other long term (current) drug therapy
CPT/HCPCS: 36415; 71045; 74176; 76700; 80048; 80053; 80076; 81001; 83605; 83690; 83735; 84484; 85025; 85027; 85610; 85730; 86617; 86618; 86666; 86753; 87040; 87635; 93005; 99285; J1200; J1650; J2405; J2765

== ENCOUNTER 2024-03-02 14:41 | Outpatient (AMB) | payer MEDICARE, SELFPAY ==
--- NOTE | 2024-03-02 14:59 | A.OFFPC_ITS ---
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 Pain left lower leg, back pain. Regional Marketing Manager Required: No Allergies Milk Containing Products (Dairy) [Milk Containing Products] Allergy (Verified 03/31/21 10:58) Vomiting sulfamethoxazole [From Bactrim] Adverse Reaction (Severe, Verified 04/02/21 09:23) Drug-induced liver injury/JACINTO trimethoprim [From Bactrim] Adverse Reaction (Severe, Verified 04/02/21 09:23) Drug-induced liver injury/JACINTO Tobacco use date assessed: 03/02/24 Fall risk assessment: No Falls in past year Dental Screening Dental Screen Date: 03/02/24 Did you have a dental visit in the last 12 months?: No Did you have a dental problem in the last 6 months where you did not have access to dental care?: No Was dental information given to patient?: Patient declined HPI HPI Comments History of Present Illness Details This is a 73 year old female with a past medical history of OA, osteopenia, h/o lyme disease presenting for follow up MSK: bilateral hip OA. Sees [facility]. considering replacement at some point but last time she was in told not quite bad enough. She has been having increased thoracic and low back pain and bilateral LS radicular symptoms, worse at night with c/o restless legs as well. She denies LE weakness. No falls. She has a history of lyme disease which was treated. She checks daily for ticks due to frequent exposure. Mammo-she believes up to date at [facility]. Ordered repeat-given number Colon cancer screening overdue. Cologuard ordered in 2021-not completed [facility] Medical History (Updated 03/03/24 @ 15:44 by Varsha Kelley MD) Osteoporosis Hx of mammogram Osteopenia Obesity, Class II, BMI 35-39.9 Lyme disease Arthritis Adverse effect of sulfamethoxazole Drug-induced liver injury Gallstones Abnormal LFTs Acidosis, lactic JACINTO (acute kidney injury) Acute dehydration Vomiting UTI (urinary tract infection) Osteoarthritis No known health problems Surgical History (Updated 03/02/24 @ 15:19 by Karla Rucker CMA) Hx of total knee replacement History of total bilateral knee replacement (TKR) Family History (Updated 03/02/24 @ 15:21 by Karla Rucker CMA) Father Heart disease Arthritis Mother CHF (congestive heart failure) Arthritis Cancer Brother Multiple sclerosis Social History Household Members: Spouse Housing: House Do you presently have visiting nurse or other home services: No Alcohol intake: never Patient Tobacco Use Status: Never used Tobacco e-Cigarette/Vaping Use: Never Used Second Hand Smoke Exposure: No Advance Directives Date on File: 03/31/21 service: No Current occupational status: retired Cognitive needs: No Hearing needs: No Vision needs: Yes (glasses) Questionnaire AUDIT C Alcohol Use Questionnaire (AUDIT-C) 1. How often do you have a drink containing alcohol?: Never 3. How often do you have six or more drinks on one occasion?: Never Total Score: 0 Review of Systems Const Details: see HPI Physical exam (Primary Care) Vital Signs: Last Vital Signs Temp 98 F 03/02/24 15:08 Pulse 79 03/02/24 15:08 Resp 14 03/02/24 15:08 BP 136/66 03/02/24 15:08 Pulse Ox 97 03/02/24 15:08 Oxygen Delivery Method Room Air 03/02/24 15:08 PHYSICAL EXAM: GENERAL: Alert and oriented x 3. NAD EYES: EOMI. Anicteric. HENT: Moist mucous membranes. No scleral icterus. No cervical lymphadenopathy. LUNGS: Clear to auscultation bilaterally. CARDIOVASCULAR: Regular rate and rhythm. No murmur. No JVD. ABDOMEN: Soft, non-tender +bs EXTREMITIES: No edema. Non-tender. SKIN: No rashes or lesions. Warm. NEUROLOGIC: No focal neurological deficits. PSYCHIATRIC: Cooperative. Appropriate mood and affect Tobacco/Smoking Status: Tobacco use Status Tobacco use date assessed 03/02/24 03/02/24 15:07 Patient Tobacco Use Status Never used Tobacco 03/02/24 14:59 e-Cigarette/Vaping Use Never Used 03/02/24 15:07 Assessment and Plan Assessment & Plan (1) Lumbosacral radiculopathy due to degenerative joint disease of spine: Code(s): M47.27 - Other spondylosis with radiculopathy, lumbosacral region Plan: Check xray thoracic and ls spine. would consider referral but declines at present. gabapentin 600mg nightly (2) Bilateral sciatica: Code(s): M54.31 - Sciatica, right side; M54.32 - Sciatica, left side (3) Thoracic back pain: Code(s): M54.6 - Pain in thoracic spine Qualifiers: Back pain laterality: bilateral Chronicity: chronic Qualified Code(s): M54.6 - Pain in thoracic spine; G89.29 - Other chronic pain (4) Difficulty sleeping: Code(s): G47.9 - Sleep disorder, unspecified Orders: Orders XR lumbar spine 2-3V Today G47.9 - Sleep disorder, unspecified, M47.27 - Other spondylosis with radiculopathy, lumbosacral region, M54.17 - Radiculopathy, lumbosacral region, M54.31 - Sciatica, right side, M54.32 - Sciatica, left side, M54.6 - Pain in thoracic spine XR thoracic spine 2V Today M54.6 - Pain in thoracic spine MM diagnostic mammo BI 03/02/24 Z12.31 - Encounter for screening mammogram for malignant neoplasm of breast Referrals Cologuard Test Z12.11 - Encounter for screening for malignant neoplasm of colon, Z12.12 - Encounter for screening for malignant neoplasm of rectum Medications: New gabapentin 600 mg (2 x 300 mg) PO BEDTIME 180 caps 3RF 90 days Discontinued ondansetron Discontinued Reason: Patient Completed Course 4 mg PO Q8H PRN 14 tabs 0RF nausea and vomiting umzovhuczq-rbcyrpwerdizh-mmpu 50-325-40 mg Discontinued Reason: Patient no longer taking 1 tab PO Q4H PRN 20 tabs 0RF Headache doxycycline monohydrate Discontinued Reason: Patient no longer taking 200 mg (2 x 100 mg) PO ONCE PRN 2 caps 0RF tick attached for more than 36 hours Coding Level of Care Code Est Pt Level 4 (38303) Complex EM visit Add On G2211 Diagnoses Lumbosacral radiculopathy due to degenerative joint disease of spine M47.27 Bilateral sciatica M54.31; M54.32 Chronic bilateral thoracic back pain M54.6; G89.29 Back pain laterality: bilateral Chronicity: chronic Difficulty sleeping G47.9
[2024-03-02 15:08] VITALS: BP 136/66; PULSE 79; RESP 14; TEMP 36.6; O2SAT 97
== END 2024-03-02 15:50 | disposition home or self-care (01) ==
LOC: HO.HMGFM 14:46
PROVIDERS: PCP Internal Medicine; Visit Provider Internal Medicine
DX: M47.27 Other spondylosis with radiculopathy, lumbosacral region (principal); M54.31 Sciatica, right side; M54.32 Sciatica, left side; M54.6 Pain in thoracic spine; G89.29 Other chronic pain; G47.9 Sleep disorder, unspecified
CPT/HCPCS: 99214; G2211

== ENCOUNTER 2024-03-03 09:58 | Outpatient (REF) | payer MEDICARE, SELFPAY ==
--- NOTE | ~2024-03-03 | XR_ITS ---
EXAMINATION: XR THORACIC SPINE XR LUMBAR SPINE CLINICAL INFORMATION: Chronic back pain, patient stated no injury. COMPARISON: Chest radiograph and CT abdomen and pelvis of 03/31/2021. TECHNIQUE: 4 views of the lumbar spine. 3 views of the thoracic spine. FINDINGS: THORACIC SPINE: Multilevel degenerative changes in the thoracic spine with loss of disc space height and hypertrophic change. Degenerative changes between the anterior arch of C1 and the odontoid. LUMBAR SPINE: Please note that L1 vertebral body is inadequately imaged on lateral views, limiting evaluation. This is an incomplete study and technically inadequate. Repeat lateral view with inclusion of L1 vertebral body recommended at no charge to the patient. When this image is provided, an addendum will be dictated. Technologist has been asked to obtain these images by [facility] staff. Levoscoliosis of the lumbar spine. Bilateral sacroiliac joints are symmetric. Degenerative changes and very limited images of the bilateral hips. Rounded pelvic calcifications are likely vascular. Advanced facet arthritis in the [id number] lumbar spine. Advanced degenerative changes with loss of disc space height and hypertrophic changes L4-L5. Minimal grade 1 retrolisthesis of L4 on L5. XR/XR lumbar spine 2-3V IMPRESSION: 1. Multilevel degenerative changes in the thoracic spine. 2. Please note that L1 vertebral body is inadequately imaged on lateral views of the lumbar spine, limiting evaluation. This is an incomplete study and technically inadequate. Repeat lateral view with inclusion of L1 vertebral body recommended at no charge to the patient. When this image is provided, an addendum will be dictated. Technologist has been asked to obtain these images by [facility] staff. 3. Advanced degenerative changes with loss of disc space height and hypertrophic changes L4-L5. Minimal grade 1 retrolisthesis of L4 on L5.
--- NOTE | ~2024-03-03 | XR_ITS ---
EXAMINATION: XR THORACIC SPINE XR LUMBAR SPINE CLINICAL INFORMATION: Chronic back pain, patient stated no injury. COMPARISON: Chest radiograph and CT abdomen and pelvis of 03/31/2021. TECHNIQUE: 4 views of the lumbar spine. 3 views of the thoracic spine. FINDINGS: THORACIC SPINE: Multilevel degenerative changes in the thoracic spine with loss of disc space height and hypertrophic change. Degenerative changes between the anterior arch of C1 and the odontoid. LUMBAR SPINE: Please note that L1 vertebral body is inadequately imaged on lateral views, limiting evaluation. This is an incomplete study and technically inadequate. Repeat lateral view with inclusion of L1 vertebral body recommended at no charge to the patient. When this image is provided, an addendum will be dictated. Technologist has been asked to obtain these images by [facility] staff. Levoscoliosis of the lumbar spine. Bilateral sacroiliac joints are symmetric. Degenerative changes and very limited images of the bilateral hips. Rounded pelvic calcifications are likely vascular. Advanced facet arthritis in the awt-if-dtunv lumbar spine. Advanced degenerative changes with loss of disc space height and hypertrophic changes L4-L5. Minimal grade 1 retrolisthesis of L4 on L5. XR/XR thoracic spine 2V IMPRESSION: 1. Multilevel degenerative changes in the thoracic spine. 2. Please note that L1 vertebral body is inadequately imaged on lateral views of the lumbar spine, limiting evaluation. This is an incomplete study and technically inadequate. Repeat lateral view with inclusion of L1 vertebral body recommended at no charge to the patient. When this image is provided, an addendum will be dictated. Technologist has been asked to obtain these images by [facility] staff. 3. Advanced degenerative changes with loss of disc space height and hypertrophic changes L4-L5. Minimal grade 1 retrolisthesis of L4 on L5.
== END 2024-03-03 09:59 | disposition home or self-care (01) ==
LOC: HO.XRAY 09:58
PROVIDERS: PCP Internal Medicine; Visit Provider Internal Medicine
DX: M54.17 Radiculopathy, lumbosacral region (principal); M54.31 Sciatica, right side; M54.32 Sciatica, left side; M54.6 Pain in thoracic spine; G47.9 Sleep disorder, unspecified
CPT/HCPCS: 72070; 72100

== ENCOUNTER 2024-04-29 11:29 | Outpatient (REF) | payer MEDICARE, SELFPAY ==
--- NOTE | ~2024-04-29 | XR_ITS ---
EXAMINATION: XR HAND/WRIST, RIGHT CLINICAL INFORMATION: Pain COMPARISON: None TECHNIQUE: PA, lateral, and oblique views of the right hand and wrist. FINDINGS: There is bony demineralization. There is mild to moderate osteoarthritic change of the interphalangeal joint of the thumb and of the proximal and distal interphalangeal joints of the second through fourth fingers. There is osteoarthritic change of the second metacarpophalangeal joint and the first carpometacarpal joint. There is degenerative change of the triscaphe joint. No fracture or dislocation is seen. The proximal and distal carpal rows are intact. There is no abnormal bone erosion. No focal soft tissue swelling, gas or foreign body is seen. XR/XR hand wrist RT IMPRESSION: There is multi-focal osteoarthritic change of the right hand and wrist. No abnormal bone erosion is seen. No fracture or dislocation is seen.
== END 2024-04-29 11:30 | disposition home or self-care (01) ==
LOC: HO.XRAY 11:29
PROVIDERS: PCP Internal Medicine; Visit Provider Internal Medicine
DX: M25.531 Pain in right wrist (principal); W19.XXXA Unspecified fall, initial encounter
CPT/HCPCS: 73110; 73130

== ENCOUNTER 2024-05-02 10:13 | Outpatient (AMB) | payer MEDICARE, SELFPAY ==
[2024-05-02 10:32] VITALS: BP 126/64; PULSE 68; RESP 12; O2SAT 96; BMI 36.5
--- NOTE | 2024-05-02 10:32 | MHC.PC.OV ---
Vital Signs 05/02/24 10:32 Height 5 ft 6 in Weight 226 lb BMI 36.5 BP 126/64 Blood Pressure Location Lt brachial Position Sitting Respiration 12 Pulse 68 Pulse Source Pulse Oximeter Pulse Oximetry (%) 96 Oxygen Delivery Method Room Air Intake Visit Reasons: wrist pain Intake Note: Patient is here for right wrist pain after a fall on Thursday. Patient states she had xrays done on thursday. 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 Accompanied by: Spouse Allergies Milk Containing Products (Dairy) [Milk Containing Products] Allergy (Verified 05/02/24 10:38) Vomiting sulfamethoxazole [From Bactrim] Adverse Reaction (Severe, Verified 05/02/24 10:38) Drug-induced liver injury/JACINTO trimethoprim [From Bactrim] Adverse Reaction (Severe, Verified 05/02/24 10:38) Drug-induced liver injury/JACINTO Tobacco use date assessed: 03/02/24 Fall risk assessment: 1 Fall in past year Last assessed Fall Risk: 05/02/24 Dental Screening Dental Screen Date: 03/02/24 HPI HPI Comments History of Present Illness Details This is a 73 year old female with a past medical history of OA, osteopenia, h/o lyme disease presenting for follow up She fell last week (4 days ago) falling on her outstretched wrist. She had xray ordered -has not been read yet. She has noticed a circular bump on the inner wrist. Pain and swelling as decreased since the fall MSK: bilateral hip OA. Sees [facility]. considering replacement at some point but last time she was in told not quite bad enough. She has been having increased thoracic and low back pain and bilateral LS radicular symptoms, worse at night with c/o restless legs as well. She denies LE weakness. No falls. She has a history of lyme disease which was treated. She checks daily for ticks due to frequent exposure. Mammo-she believes up to date at [facility]. Ordered repeat-given number Colon cancer screening overdue. Cologuard ordered in 2021-not completed ROS CONSTITUTIONAL: Denies weight loss, fever and chills. HEENT: Denies changes in vision and hearing. RESPIRATORY: Denies SOB and cough. CV: Denies palpitations and CP GI: Denies abdominal pain, nausea, vomiting and diarrhea. : Denies dysuria and urinary frequency. MSK: see HPI SKIN: Denies rash and pruritus. NEUROLOGICAL: Denies headache PSYCHIATRIC: Denies recent changes in mood. PHYSICAL EXAM: GENERAL: Alert and oriented x 3. NAD EYES: EOMI. Anicteric. HENT: Moist mucous membranes. LUNGS: Clear to auscultation bilaterally. CARDIOVASCULAR: Regular rate and rhythm. No murmur. No JVD. ABDOMEN: Soft, non-tender +bs EXTREMITIES: No edema. Non-tender. SKIN: No rashes or lesions. Warm. NEUROLOGIC: No focal neurological deficits. CN II-XII grossly intact PSYCHIATRIC: Cooperative. Appropriate mood and affect [facility] Medical History (Updated 05/02/24 @ 11:06 by Varsha Kelley MD) Osteoporosis Hx of mammogram Osteopenia Obesity, Class II, BMI 35-39.9 Lyme disease Arthritis Adverse effect of sulfamethoxazole Drug-induced liver injury Gallstones Abnormal LFTs Acidosis, lactic JACINTO (acute kidney injury) Acute dehydration Vomiting UTI (urinary tract infection) Osteoarthritis No known health problems Surgical History (Updated 03/02/24 @ 15:19 by Karla Rucker CMA) Hx of total knee replacement History of total bilateral knee replacement (TKR) Family History (Updated 03/02/24 @ 15:21 by Karla Rucker CMA) Father Heart disease Arthritis Mother CHF (congestive heart failure) Arthritis Cancer Brother Multiple sclerosis Social History Household Members: Spouse Housing: House Do you presently have visiting nurse or other home services: No Alcohol intake: never Patient Tobacco Use Status: Never used Tobacco e-Cigarette/Vaping Use: Never Used Second Hand Smoke Exposure: No Advance Directives Date on File: 03/31/21 service: No Current occupational status: retired Cognitive needs: No Hearing needs: No Vision needs: Yes (glasses) Physical exam (Primary Care) Vital Signs: Last Vital Signs Pulse 68 05/02/24 10:32 Resp 12 05/02/24 10:32 BP 126/64 05/02/24 10:32 Pulse Ox 96 05/02/24 10:32 Oxygen Delivery Method Room Air 05/02/24 10:32 BMI result Body Mass Index 36.5 Tobacco/Smoking Status: Tobacco use Status Tobacco use date assessed 03/02/24 05/02/24 10:39 Patient Tobacco Use Status Never used Tobacco 05/02/24 10:39 e-Cigarette/Vaping Use Never Used 05/02/24 10:39 Assessment and Plan Assessment & Plan (1) Right wrist pain: Code(s): M25.531 - Pain in right wrist Plan: Xray reading pending. Unlikely fractured based on exam and xray review. She has developed what feels like a ganglion cyst. The pain has decreased quite a bit, as has swelling She will consider orthopedics depending on xray/pain (2) DDD (degenerative disc disease), lumbar: Code(s): M51.36 - Other intervertebral disc degeneration, lumbar region (3) Fall: Code(s): W19.XXXA - Unspecified fall, initial encounter Orders: Orders MR lumbar spine wo con 05/02/24 M47.27 - Other spondylosis with radiculopathy, lumbosacral region, M51.36 - Other intervertebral disc degeneration, lumbar region, M54.31 - Sciatica, right side, M54.32 - Sciatica, left side Medications: New pramipexole 0.25 mg PO DAILY 90 tabs 3RF Coding Level of Care Code Est Pt Level 4 (39342) Diagnoses Right wrist pain M25.531 DDD (degenerative disc disease), lumbar M51.36 Fall W19.XXXA
== END 2024-05-02 11:15 | disposition home or self-care (01) ==
PROVIDERS: PCP Internal Medicine; Visit Provider Internal Medicine
DX: M25.531 Pain in right wrist (principal); M51.36 Other intervertebral disc degeneration, lumbar region; W19.XXXA Unspecified fall, initial encounter
CPT/HCPCS: 99214

== ENCOUNTER → 2024-05-13 10:28 | Outpatient (AMB) | payer MEDICARE, SELFPAY ==
--- NOTE | 2024-05-13 09:45 | A.OFFPC_ITS ---
Intake Visit Reasons: X-ray results Allergies Milk Containing Products (Dairy) [Milk Containing Products] Allergy (Verified 0 05/02/24 10:38) Vomiting sulfamethoxazole [From Bactrim] Adverse Reaction (Severe, Verified 05/02/24 10:38) Drug-induced liver injury/JACINTO trimethoprim [From Bactrim] Adverse Reaction (Severe, Verified 05/02/24 10:38) Drug-induced liver injury/JACINTO Tobacco use date assessed: 03/02/24 Dental Screening Dental Screen Date: 03/02/24 HPI HPI Comments History of Present Illness Details This is a 74 year old female with a past medical history of OA, osteopenia, h/o lyme disease presenting for follow up She fell recently falling on her outstretched wrist. She had xray ordered -the reading of which was delayed. She had noticed a circular bump on the inner wrist. Pain and swelling less than right after fall but persists. Xray without fracture but significant arthritis. She would like to see orthopedics MSK: bilateral hip OA. Sees [facility]. considering replacement at some point but last time she was in told not quite bad enough. She has been having increased thoracic and low back pain and bilateral LS radicular symptoms, worse at night with c/o restless legs as well. She denies LE weakness. No falls. She has a history of lyme disease which was treated. She checks daily for ticks due to frequent exposure. Mammo-she believes up to date at [facility]. Ordered repeat-given number Colon cancer screening overdue. Cologuard ordered in 2021-not completed ROS see HPI PFS Medical History (Updated 05/02/24 @ 11:06 by Varsha Kelley MD) Osteoporosis Hx of mammogram Osteopenia Obesity, Class II, BMI 35-39.9 Lyme disease Arthritis Adverse effect of sulfamethoxazole Drug-induced liver injury Gallstones Abnormal LFTs Acidosis, lactic JACINTO (acute kidney injury) Acute dehydration Vomiting UTI (urinary tract infection) Osteoarthritis No known health problems Surgical History (Updated 03/02/24 @ 15:19 by Karla Rucker CMA) Hx of total knee replacement History of total bilateral knee replacement (TKR) Family History (Updated 03/02/24 @ 15:21 by Karla Rucker CMA) Father Heart disease Arthritis Mother CHF (congestive heart failure) Arthritis Cancer Brother Multiple sclerosis Social History Household Members: Spouse Housing: House Do you presently have visiting nurse or other home services: No Alcohol intake: never Patient Tobacco Use Status: Never used Tobacco e-Cigarette/Vaping Use: Never Used Second Hand Smoke Exposure: No Advance Directives Date on File: 03/31/21 service: No Current occupational status: retired Cognitive needs: No Hearing needs: No Vision needs: Yes (glasses) Physical exam (Primary Care) Tobacco/Smoking Status: Tobacco use Status Tobacco use date assessed 03/02/24 05/13/24 09:46 Patient Tobacco Use Status Never used Tobacco 05/13/24 09:46 e-Cigarette/Vaping Use Never Used 05/13/24 09:46 Telehealth Telehealth Telehealth Platform: Telephone Location of provider rendering services: practice address Location of patient: address on file Patient Identification confirmed using: Name, : Yes Telehealth method: voice only Patient verbally consented to treatment: Yes Patient verbally consented to billing insurance company: Yes Patient informed of any privacy concerns related to visit: Yes Minutes spent on Phone/Video with Pt.: 25 Assessment and Plan Assessment & Plan (1) Right wrist pain: Code(s): M25.531 - Pain in right wrist Plan: referral to orthopedics placed (2) DDD (degenerative disc disease), lumbar: Code(s): M51.36 - Other intervertebral disc degeneration, lumbar region Orders: Referrals Orthopedics Referral M25.531 - Pain in right wrist Coding Level of Care Code Tele Est Pt Level 3 (23831) Diagnoses Right wrist pain M25.531 DDD (degenerative disc disease), lumbar M51.36
--- OUTSIDE RECORDS SUMMARY | 2024-05-13 10:30 | XMS_ITS | Continuity of Care Document ---
Author Organization [facility] ter Address [address] [place] [id number]- Care Team Providers Care Rn Heart Name Role Phone Yanely Cooper MD Primary Care Physician Encounter [facility] [place](s): 04/04/21 - 05/04/[address] [address]- Attending Physician: Not on Staff, Attending MD Admitting Physician: Not on Staff, Admitting MD Referring Physician: Not on Staff, Referring MD Allergies, Adverse Reactions, Alerts Substance Reaction Severity Status NKA Active Immunizations Given and Recorded Vaccine Date Status Refusal Reason SARS-CoV-2 (COVID-19) mRNA BNT-162b2 vac 01/25/21 Given SARS-CoV-2 (COVID-19) mRNA BNT-162b2 vac 01/04/21 Given Medications acetaminophen 325 mg oral tablet 650 mg, By Mouth, Every 6 hours, Refills 0, Maintenance, 04/24/17 7:14:17 Start Date: 04/24/17 Status: Ordered aspirin 162.5 mg oral capsule, extended release = 325 mg, By Mouth, 2 times a day, 0 Refills, Maintenance, 04/24/17 7:14:20, ER Capsule Start Date: 04/24/17 Status: Ordered celecoxib 200 mg oral capsule = 200 mg, By Mouth, Daily, 0 Refills, Maintenance, 04/24/17 7:14:27, Capsule Start Date: 04/24/17 Status: Ordered docusate sodium 100 mg oral capsule 100 mg, 1, capsule, By Mouth, 2 times a day, Refills 0, Maintenance, 04/24/17 7:14:30 Start Date: 04/24/17 Status: Ordered Maalox Plus Liquid 30 mL, By Mouth, Every 4 hours, PRN Nausea & Vomiting, 0 Refills, Maintenance, 04/24/17 7:14:18, Suspension Start Date: 04/24/17 Status: Ordered Milk of Magnesia Liquid 30 mL, By Mouth, Daily, PRN Constipation, 0 Refills, Maintenance, 04/24/17 7:14:31, Suspension Start Date: 04/24/17 Status: Ordered MiraLax Powder 1 pack/packet = 17 Gm, By Mouth, Daily, 0 Refills, Maintenance, 04/24/17 7:14:33, Powder Start Date: 04/24/17 Status: Ordered omeprazole 40 mg, By Mouth, Daily, Maintenance, 04/24/17 7:14:38, omeprazole Start Date: 04/24/17 Status: Ordered senna 187 mg oral tablet 1 tablet = 8.6 mg, By Mouth, Daily at bedtime, 0 Refills, Maintenance, 04/24/17 7:14:42, Tablet Start Date: 04/24/17 Status: Ordered Social History Social History Type Response Smoking Status Never smoker entered on: 03/11/17 Sex
== END ==
LOC: HO.HMGFM 10:28
PROVIDERS: PCP Internal Medicine; Visit Provider Internal Medicine
DX: M25.531 Pain in right wrist (principal); M51.36 Other intervertebral disc degeneration, lumbar region
CPT/HCPCS: 99443

== ENCOUNTER 2024-08-26 16:01 | Outpatient (AMB) | payer MEDICARE, SELFPAY ==
--- NOTE | 2024-08-26 16:05 | MHC.PC.OV ---
Vital Signs 08/26/24 16:13 Height 5 ft 6 in Weight 228 lb BMI 36.8 BP 114/76 Blood Pressure Location Rt brachial Position Sitting Pulse 68 Pulse Source Pulse Oximeter Pulse Oximetry (%) 95 Oxygen Delivery Method Room Air Intake Visit Reasons: CPE Intake Note: Physical Allergies Milk Containing Products (Dairy) [Milk Containing Products] Allergy (Verified 08/26/24 16:08) Vomiting sulfamethoxazole [From Bactrim] Adverse Reaction (Severe, Verified 08/26/24 16:08) Drug-induced liver injury/JACINTO trimethoprim [From Bactrim] Adverse Reaction (Severe, Verified 08/26/24 16:08) Drug-induced liver injury/JACINTO Tobacco use date assessed: 03/02/24 Dental Screening Dental Screen Date: 03/02/24 HPI HPI Comments History of Present Illness Details This is a 74 year old female with a past medical history of OA, osteopenia, h/o lyme disease presenting for physical exam MSK: bilateral hip OA. Sees [facility]. considering replacement at some point but last time she was in told not quite bad enough. She has been having increased thoracic and low back pain and bilateral LS radicular symptoms, worse at night with c/o restless legs as well. She denies LE weakness. No falls. She has a history of lyme disease which was treated. She checks daily for ticks due to frequent exposure. Neuro: neuropathy, restless legs. Legs feel heavy, sensation of pins and needles. A lot of pain in plantar foot at base of toes. Mammo-overdue. Ordered again today Colon cancer screening overdue. Cologuard ordered in 2021-not completed. Ordered again today HRA reviewed Care team updated-[facility], physiatry ROS see HPI PHYSICAL EXAM: GENERAL: Alert and oriented x 3. NAD EYES: EOMI. Anicteric. HENT: Moist mucous membranes. No scleral icterus. No cervical lymphadenopathy. LUNGS: Clear to auscultation bilaterally. CARDIOVASCULAR: Regular rate and rhythm. No murmur. No JVD. ABDOMEN: Soft, non-tender +bs EXTREMITIES: No edema. Non-tender. SKIN: No rashes or lesions. Warm. NEUROLOGIC: No focal neurological deficits. CN II-XII grossly intact PSYCHIATRIC: Cooperative. Appropriate mood and affect [facility] Medical History Osteoporosis Hx of mammogram Osteopenia Obesity, Class II, BMI 35-39.9 Lyme disease Arthritis Adverse effect of sulfamethoxazole Drug-induced liver injury Gallstones Abnormal LFTs Acidosis, lactic JACINTO (acute kidney injury) Acute dehydration Vomiting UTI (urinary tract infection) Osteoarthritis No known health problems Surgical History Hx of total knee replacement History of total bilateral knee replacement (TKR) Family History Father Heart disease Arthritis Mother CHF (congestive heart failure) Arthritis Cancer Brother Multiple sclerosis Social History Household Members: Spouse Housing: House Do you presently have visiting nurse or other home services: No Alcohol intake: never Patient Tobacco Use Status: Never used Tobacco e-Cigarette/Vaping Use: Never Used Second Hand Smoke Exposure: No Advance Directives Date on File: 03/31/21 service: No Current occupational status: retired Cognitive needs: No Hearing needs: No Vision needs: Yes (glasses) Questionnaire PHQ-9 Over the last 2 weeks, how often have you been bothered by any of the following problems? 1. Little interest or pleasure in doing things: nearly every day 2. Feeling down, depressed, or hopeless: not at all 3. Trouble falling or staying asleep, or sleeping too much: not at all 4. Feeling tired or having little energy: not at all 5. Poor appetite or overeating: not at all 6. Feeling bad about yourself - or that you are a failure or have let yourself or your family down: not at all 7. Trouble concentrating on things, such as reading the newspaper or watching television: not at all 8. Moving or speaking so slowly that other people could have noticed. Or the opposite - being so fidgety or restless that you have been moving around a lot more than usual: not at all 9. Thoughts that you would be better off or of hurting yourself in some way: not at all Total score: 3 Depression Screening Interpretation: Negative Depression Screening Done: Yes 35673 - PHQ-9 Billing: Yes Source: Developed by Drs. Satinder Flores, Zeinab Prescott, Jay Oates and colleagues, with an educational camacho from [employer]. Thrive Questionnaire I am a: Patient What is your living situation today?: I have a steady place to live Within the past 12 months, did the food you bought not last and you didn't have the money to get more?: Never true Within the past 12 months, did you worry whether your food would run out before you got money to buy more?: Never true Do you have trouble paying for medicines?: I choose not to answer this question Do you have trouble getting transportation to medical appointments?: No Do you have trouble paying your heating and electricity bill?: I choose not to answer this question Do you have trouble taking care of your child, family member or friend?: No Do you have trouble with day-to-day activities such as bathing, preparing meals, shopping, managing finances, etc.?: No Are you currently unemployed and looking for a job?: No Are you interested in more education?: No Please select the resources that you would like help with: None Currently or been in a relationship where the following occur: I choose not to answer THRIVE Score: 0 AUDIT C Alcohol Use Questionnaire (AUDIT-C) 1. How often do you have a drink containing alcohol?: Never Total Score: 0 EBER-7 AMB Questionnaire EBER-7 Feeling nervous, anxious, or on edge: 0 = Not at all Not being able to stop or control worryin = Not at all Worrying too much about different things: 0 = Not at all Trouble relaxin = Not at all Being so restless that it is hard to sit still: 0 = Not at all Becoming easily annoyed or irritable: 0 = Not at all Feeling afraid as if something awful might happen: 0 = Not at all Total EBER-7 score (0-4 normal; 5-9 mild; 10-14 moderate; 15-21 severe): 0 Source: Developed by Drs. Satinder Flores, Jay Borges and colleagues, with an educational camacho from [employer]. Physical exam (Primary Care) Vital Signs: Last Vital Signs Pulse 68 08/26/24 16:13 BP 114/76 08/26/24 16:13 Pulse Ox 95 08/26/24 16:13 Oxygen Delivery Method Room Air 08/26/24 16:13 BMI result Body Mass Index 36.8 Tobacco/Smoking Status: Tobacco use Status Tobacco use date assessed 03/02/24 08/26/24 16:08 Patient Tobacco Use Status Never used Tobacco 08/26/24 16:08 e-Cigarette/Vaping Use Never Used 08/26/24 16:08 PHQ-9: PHQ-9 Score PHQ-9: Total score 3 09/01/24 15:19 Depression Screening Interpretation: Negative Currently or been in a relationship where the following occur: I choose not to answer Coding Level of Care Code Est Pt Prev Care >65y(24829) Diagnoses Physical exam Z00.00 Degeneration of intervertebral disc of lumbar region with discogenic back pain and lower extremity pain M51.362 Disc-related pain type: discogenic back pain and lower extremity pain Right foot pain M79.671 Laterality: right Additional Codes PHQ-9 - 52591 - PHQ-9 Billing: Yes ([id number]) Assessment & Plan Assessment & Plan (1) Physical exam: Code(s): Z00.00 - Encounter for general adult medical examination without abnormal findings Category: Medical Plan: Preventive measures discussed Care team, medications, HRA reviewed (2) DDD (degenerative disc disease), lumbar: Code(s): M51.36 - Other intervertebral disc degeneration, lumbar region Category: Medical Qualifiers: Disc-related pain type: discogenic back pain and lower extremity pain Qualified Code(s): M51.362 - Other intervertebral disc degeneration, lumbar region with discogenic back pain and lower extremity pain Plan: continue follow up physiatry (3) Foot pain: Code(s): M79.673 - Pain in unspecified foot Category: Medical Qualifiers: Laterality: right Qualified Code(s): M79.671 - Pain in right foot Plan: Declines podiatry referral Trial voltaren cream Orders: Orders MM screening mammo BI 08/26/24 Z12.31 - Encounter for screening mammogram for malignant neoplasm of breast Complete Blood Count Auto Diff 08/31/24 G47.9 - Sleep disorder, unspecified, M51.36 - Other intervertebral disc degeneration, lumbar region, Z00.00 - Encounter for general adult medical examination without abnormal findings Lipid Panel 08/31/24 G47.9 - Sleep disorder, unspecified, M51.36 - Other intervertebral disc degeneration, lumbar region, Z00.00 - Encounter for general adult medical examination without abnormal findings TSH reflex Free T4 08/31/24 G47.9 - Sleep disorder, unspecified, M51.36 - Other intervertebral disc degeneration, lumbar region, Z00.00 - Encounter for general adult medical examination without abnormal findings Comprehensive Met. Panel 08/31/24 G47.9 - Sleep disorder, unspecified, M51.36 - Other intervertebral disc degeneration, lumbar region, Z00.00 - Encounter for general adult medical examination without abnormal findings Hemoglobin A1c 08/31/24 G47.9 - Sleep disorder, unspecified, M51.36 - Other intervertebral disc degeneration, lumbar region, Z00.00 - Encounter for general adult medical examination without abnormal findings Medications: New diclofenac sodium 1% (Arthritis Pain (diclofenac)) apply to single knee, ankle, foot; for foot includes sole/toes/top of foot 4 grams topical QID PRN 100 grams 3RF pain
[2024-08-26 16:13] VITALS: BP 114/76; PULSE 68; O2SAT 95; BMI 36.8
== END 2024-08-26 16:52 | disposition home or self-care (01) ==
PROVIDERS: PCP Internal Medicine; Visit Provider Internal Medicine
DX: Z00.00 Encounter for general adult medical examination without abnormal findings (principal); M51.362 Other intervertebral disc degeneration, lumbar region with discogenic back pain and lower extremity pain; M79.671 Pain in right foot

== ENCOUNTER → 2024-08-26 16:01 | Outpatient (BNVA) | payer MEDICARE, SELFPAY | PROVIDERS: PCP Internal Medicine; Visit Provider Internal Medicine | DX: Z00.00 Encounter for general adult medical examination without abnormal findings (principal); M51.362 Other intervertebral disc degeneration, lumbar region with discogenic back pain and lower extremity pain; M79.671 Pain in right foot; M16.0 Bilateral primary osteoarthritis of hip; G62.9 Polyneuropathy, unspecified; G25.81 Restless legs syndrome; M85.80 Other specified disorders of bone density and structure, unspecified site; G47.9 Sleep disorder, unspecified; Z86.19 Personal history of other infectious and parasitic diseases | CPT/HCPCS: 96127; 99397 ==

== ENCOUNTER 2024-08-31 10:00 | Outpatient (REF) | payer MEDICARE, SELFPAY ==
[2024-08-31 11:36] LABS: MANUAL DIFF FLAG NO
[2024-08-31 11:43] LABS: Basophils Percent Auto 0.6 % (0-2); Eosinophils Absolute Auto 0.1 X10*3/uL (0.0-0.4); Eosinophils Percent Auto 1.9 % (0-4); Hematocrit 38.8 % (37.0-47.0); Hemoglobin 12.3 g/dl (12.0-16.0); Imm Gran Abs Auto 0.03 X10*3/uL (0.00-0.03); Imm Gran Pct Auto 0.4 % (0.0-0.4); Mean Corpuscular HGB Conc 31.7 g/dl (31.0-35.0); Mean Corpuscular Hemoglobin 28.2 pg (27.0-33.0); Mean Platelet Volume 9.2 fL (9.4-12.3); Monocytes Absolute Auto 0.6 X10*3/uL (0.1-1.2); Monocytes Percent Auto 7.8 % (2-11); Neutrophils Absolute Auto 4.5 x10*3/uL (2.0-8.3); Neutrophils Percent Auto 62.3 % (45-73); Platelet Count 285 X10*3/uL (160-400); Red Blood Count 4.36 X10*6/uL (4.20-5.50); Red Cell Distribution Width 14.5 % (11.0-16.0); White Blood Count 7.3 X10*3/uL (4.8-10.8)
[2024-08-31 11:52] LABS: Estimated Average Glucose 120 mg/dL; Hemoglobin A1C 130.8305 umol/L; Hemoglobin A1c % 5.8 % (<6.0)
[2024-08-31 12:34] LABS: Alanine Aminotransferase 22 U/L (0-31); Albumin Level 3.9 g/dL (3.5-5.0); Alkaline Phosphatase 103 U/L (39-117); Anion Gap 10 (12-20); Aspartate Amino Transferase 25 U/L (5-31); Bilirubin Total 0.2 mg/dL (0.0-1.0); Blood Urea Nitrogen 18 mg/dL (9-16); Calcium 9.1 mg/dL (8.4-10.2); Carbon Dioxide 29 mmol/L (22-29); Chloride 107 mmol/L (96-108); Cholesterol 180 mg/dL (<200); Estimated Glomerular Filt Rate > 60; Glucose Random 83 mg/dL (60-115); HDL Cholesterol 41 mg/dL (>40); LDL Cholesterol Calculated 111 mg/dL (<100); Potassium 4.2 mmol/L (3.3-5.1); Sodium 142 mmol/L (135-145); Total Protein 7.4 g/dL (6.5-8.0); Triglycerides 142 mg/dL (<150)
[2024-08-31 12:36] LABS: TSH reflex Free T4 2.86 uIU/mL (0.32-4.0)
== END 2024-08-31 10:01 | disposition home or self-care (01) ==
LOC: HO.WFDLDS 10:00
PROVIDERS: Visit Provider Internal Medicine
DX: Z00.00 Encounter for general adult medical examination without abnormal findings (principal); M51.360 Other intervertebral disc degeneration, lumbar region with discogenic back pain only; G47.9 Sleep disorder, unspecified; Z13.1 Encounter for screening for diabetes mellitus
CPT/HCPCS: 36415; 80053; 80061; 83036; 84443; 85025

== ENCOUNTER 2024-09-15 10:52 | Outpatient (REF) | payer MEDICARE, SELFPAY ==
--- NOTE | ~2024-09-15 | MM_ITS ---
EXAMINATION: MM SCREENING DIGITAL BREAST TOMOSYNTHESIS, BILATERAL CLINICAL INFORMATION: Screening. Asymptomatic. COMPARISON: Mammography: Comparison is made with available priors TECHNIQUE: Digital breast mammography with tomosynthesis is performed in both the craniocaudal and mediolateral oblique views along with computer-aided detection (CAD). FINDINGS: There are scattered areas of fibroglandular density (ACR BI-RADS breast composition Category b). There are no significant masses, abnormal calcifications, or other abnormalities. MM/MM tomosynthesis screening BI IMPRESSION: No mammographic evidence of malignancy. ASSESSMENT: BI-RADS BI-RADS 1 - Negative RECOMMENDATION: Routine annual mammography screening. 1 year F/U This examination should not preclude the clinical evaluation of a suspicious palpable abnormality. This patient's information was entered into a reminder system with a target due date for their next mammogram. Electronically signed by: Milagro Peacock DO 09/21/2024 11:11 AM BHARTI
== END 2024-09-15 10:53 | disposition home or self-care (01) ==
LOC: HO.MAMMO 10:52
PROVIDERS: PCP Internal Medicine; Visit Provider Internal Medicine
DX: Z12.31 Encounter for screening mammogram for malignant neoplasm of breast (principal)
CPT/HCPCS: 77063; 77067

== ENCOUNTER → 2024-09-15 11:15 | Outpatient (BNV) | payer MEDICARE, SELFPAY | PROVIDERS: PCP Internal Medicine; Visit Provider Internal Medicine | DX: Z12.31 Encounter for screening mammogram for malignant neoplasm of breast (principal) | CPT/HCPCS: 77063; 77067 ==

== ENCOUNTER 2024-09-21 11:00 | Outpatient (RCR) | payer MEDICARE, SELFPAY | END 2024-09-21 12:16 | disposition home or self-care (01) | LOC: HO.PTWFD 11:00 | PROVIDERS: PCP Internal Medicine | DX: M54.16 Radiculopathy, lumbar region (principal) | CPT/HCPCS: 97110; 97140; 97162; 97535 ==

== ENCOUNTER 2025-02-27 15:38 | Outpatient (AMB) | payer MEDICARE, SELFPAY ==
--- NOTE | 2025-02-27 15:26 | MHC.PC.OV ---
Intake Visit Reasons: fu labs (home bound due to hip surgery) Intake Note: Lab results. On Tylenol and Aspirin for 30 days post hip surgery. Doll Wig Maker Required: No Allergies Milk Containing Products (Dairy) [Milk Containing Products] Allergy (Verified 02/27/25 15:31) Vomiting sulfamethoxazole [From Bactrim] Adverse Reaction (Severe, Verified 02/27/25 15:31) Drug-induced liver injury/JACINTO trimethoprim [From Bactrim] Adverse Reaction (Severe, Verified 02/27/25 15:31) Drug-induced liver injury/JACINTO Tobacco use date assessed: 03/02/24 Fall risk assessment: No Falls in past year Last assessed Fall Risk: 03/15/25 Dental Screening Dental Screen Date: 02/27/25 Did you have a dental visit in the last 12 months?: Yes Did you have a dental problem in the last 6 months where you did not have access to dental care?: No Was dental information given to patient?: Patient has dentist HPI HPI Comments History of Present Illness Details This is a 74 year old female with a past medical history of OA, osteopenia, h/o lyme disease presenting for follow up telehealth MSK: bilateral hip OA. Hospitalized at [facility] at end of January for replacement, upcoming replacement right. Sees [facility]. considering replacement at some point but last time she was in told not quite bad enough. She has been having increased thoracic and low back pain and bilateral LS radicular symptoms, worse at night with c/o restless legs as well. She denies LE weakness. No falls. She has a history of lyme disease which was treated. She checks daily for ticks due to frequent exposure. Labs during stay with prediabetic A1C, anemia Neuro: neuropathy, restless legs. stable Mammo-overdue. Order was placed Colon cancer screening overdue. Cologuard ordered in 2021-not completed. Ordered last visit HRA reviewed Care team updated-[facility], physiatry ROS see HPI PHYSICAL EXAM: [facility] Medical History Osteoporosis Hx of mammogram Osteopenia Obesity, Class II, BMI 35-39.9 Lyme disease Arthritis Adverse effect of sulfamethoxazole Drug-induced liver injury Gallstones Abnormal LFTs Acidosis, lactic JACINTO (acute kidney injury) Acute dehydration Vomiting UTI (urinary tract infection) Osteoarthritis No known health problems Surgical History History of hip surgery Hx of total knee replacement History of total bilateral knee replacement (TKR) Family History Father Heart disease Arthritis Mother CHF (congestive heart failure) Arthritis Cancer Brother Multiple sclerosis Social History Household Members: Spouse Housing: House Do you presently have visiting nurse or other home services: No Alcohol intake: never Patient Tobacco Use Status: Never used Tobacco e-Cigarette/Vaping Use: Never Used Second Hand Smoke Exposure: No Use of substances other than those prescribed or required for medical reasons: No Advance Directives Date on File: 03/31/21 service: No Current occupational status: retired Cognitive needs: No Hearing needs: No Vision needs: Yes (glasses) Physical exam (Primary Care) Tobacco/Smoking Status: Tobacco use Status Tobacco use date assessed 03/02/24 02/27/25 15:26 Patient Tobacco Use Status Never used Tobacco 02/27/25 15:38 e-Cigarette/Vaping Use Never Used 02/27/25 15:38 Telehealth Telehealth Telehealth Platform: [facility] Location of provider rendering services: practice address Location of patient: address on file Patient Identification confirmed using: Name, : Yes Telehealth method: voice only Patient verbally consented to treatment: Yes Patient verbally consented to billing insurance company: Yes Patient informed of any privacy concerns related to visit: Yes Minutes spent on Phone/Video with Pt.: 25 Coding Level of Care Code Tele Est Pt Level 3 (67989) Diagnoses Primary osteoarthritis of both hips M16.0 Osteoarthritis type: primary Laterality: bilateral Lumbosacral radiculopathy due to degenerative joint disease of spine M47.27 Degeneration of intervertebral disc of lumbar region with discogenic back pain and lower extremity pain M51.362 Disc-related pain type: discogenic back pain and lower extremity pain Assessment & Plan Assessment & Plan (1) Hip osteoarthritis: Code(s): M16.9 - Osteoarthritis of hip, unspecified Category: Medical Qualifiers: Osteoarthritis type: primary Laterality: bilateral Qualified Code(s): M16.0 - Bilateral primary osteoarthritis of hip (2) Lumbosacral radiculopathy due to degenerative joint disease of spine: Code(s): M47.27 - Other spondylosis with radiculopathy, lumbosacral region Category: Medical (3) DDD (degenerative disc disease), lumbar: Code(s): M51.36 - Other intervertebral disc degeneration, lumbar region Category: Medical Qualifiers: Disc-related pain type: discogenic back pain and lower extremity pain Qualified Code(s): M51.362 - Other intervertebral disc degeneration, lumbar region with discogenic back pain and lower extremity pain Plan Bilateral hip OA Scheduled in March for right hip Handicap flaquito paperwork completed She will follow up in 3-4 months. Follow up labs at that visit
--- OUTSIDE RECORDS SUMMARY | 2025-02-27 15:40 | XMS_ITS | Clinical Summary ---
Author Organization [employer] Address [address] [place] [address] [address] [place] [address] Care Team Providers Care Welder/Installer Name Role Phone Thelma Ruby MD Primary Care Provider [phone] Allergies Active Allergy Reactions Criticality Noted Date Comments Sulfa Antibiotics 02/11/2023 Shut down kidney, instant dehydration Medications Cholecalciferol (VITAMIN D3 PO) Take by mouth. 1000 IU Active Multiple Vitamins-Mineral s (HAIR SKIN AND NAILS FORMULA PO) Take by mouth. Active Active Problems Problem Noted Date Diagnosed Date Age-related nuclear cataract of both eyes 2022 Family History Medical History Relation Name Comments Cataracts Mother Macular degeneration Mother Grandmother cataracts Other Relation Name Status Comments Mother Other Social History Tobacco Use Types Packs/Day Years Used Date Smoking Tobacco: Never Tobacco Cessation:Counseling Given: Not Answered Comments Unknown Sex and Gender Information Value Date Recorded Sex Assigned at Female 02/09/2023 10:03 AM EDT Legal Sex Female 8:39 PM EDT Gender Identity Female 02/09/2023 10:03 AM EDT Sexual Orientation Straight 02/09/2023 10 :03 AM EDT Last Filed Vital Signs Vital Sign Reading Time Taken Comments Blood Pressure 130/90 02/11/2023 2:32 PM EDT Pulse - - Temperature 36.2 ??C (97.2 ??F) 02/11/2023 2:32 PM ED T Respiratory Rate - - Oxygen Saturation - - Inhaled Oxygen Concentration - - Weight - - Height - - Body Mass Index - - Plan of Treatment Health Maintenance Due Date Last Done Comments Depression Screening 1950 SDOH Screening 1948 Alcohol/Substance Use Screening 1960 Tobacco Screening 1960 Hepatitis C Screening 1966 Pneumococcal Vaccine: 50+ Years (1 of 1 - PCV) 1998 Zoster Vaccines (1 of 2) 1998 DTaP/Tdap/Td Vaccines (2 - T d or Tdap) 02/04/2021 02/04/2011 RSV Patients and Patients Aged 60 years or older (1 - 1-dose 75+ series) 2023 COVID-19 Vaccine (4 - 2023-2 5 season) 2024 09/11/2021, 01/25/2021, 01/04/2021 Influenza Vaccine (#1) 2024 HIB Vaccines Aged Out No longer eligi ble based on patient's age to complete this topic HPV Vaccines Aged Out No longer eligi ble based on patient's age to complete this topic Hepatitis A Vaccines Aged Out No long er eligible based on patient's age to complete this topic Hepatitis B Vaccines Aged Out No long er eligible based on patient's age to complete this topic IPV Vaccines Aged Out No longer eligi ble based on patient's age to complete this topic Meningococcal B Vaccine Aged Out No l onger eligible based on patient's age to complete this topic Meningococcal Vaccine Aged Out No emily zan eligible based on patient's age to complete this topic RSV under 20 months Aged Out No longe r eligible based on patient's age to complete this topic Rotavirus Vaccines Aged Out No longer eligible based on patient's age to complete this topic Insurance [employer] Care Teams Welder/Installer Relationship Specialty Start Date End Date Thelma Ruby MD PCP - General Internal Medicine 02/09/23
--- OUTSIDE RECORDS SUMMARY | 2025-02-27 15:40 | XMS_ITS | Patient Health Record ---
Author Organization [facility] [facility] Address [address] [place] [address] Care Team Providers Care Brim Greaser Operator Name Role Phone [email or web address] Primary Care Provider Latha Wiggins Unavailable [phone] Allergies No Known Allergies Reason For Referral No Information Medications Medication SIG (Take, Route, Fr equency, Duration) Notes Start Date End Date Status Bactrim DS 800-160 MG 1 tablet Orally TW ICE A DAY for 7 days 03/27/2021 Active Social History Tobacco Use: Social History Observation Description Date Details (start date - stop date) Never Smoker NA - NA Tobacco Use/Smoking Question Answer Notes Are you a nonsmoker Alcohol Screen (Audit-C) Question Answer Notes Did you have a drink containing alcohol in the p ast year? No Points 0 Interpretation Negative Sexual History Question Answer Notes Had sex in the past 12 months (vaginal, oral, or anal)? Yes with Men only Prevention strategies discussed: Other Problems Problem Type SNOMED Code ICD Code Onset Dates Problem Status W/U Status Risk Notes Problem Postmenopausal atrophic vaginitis (61133036) Postmenopausal atrophic vaginitis (N95.2) Active confirmed Plan Of Treatment Pending Test Test Name Order Date MAMMOGRAM, SCREENING 09/14/2020 BONE DENSITY 09/14/2020 MM Digital Mammo Screening 09/14/2020 Insurance Providers Payer Name Payer Address Payer Phone Subscriber Number Group Number Insured Name Patient Relationship to Insured Coverage Start Date Coverage End Date [employer] [facility] [address] [place] [address] [phone] [id number] HETAL JOHN Self - patient is the insured Medical (General) History Surgical History Surgery Date(Month/Year) Bilateral Total Knee Replacement Hospitalization History Reason Date(Month/Year) 4 Vaginal Deliveries
== END 2025-02-27 17:05 | disposition home or self-care (01) ==
LOC: HO.HMCFM 15:38
PROVIDERS: PCP Internal Medicine; Visit Provider Internal Medicine
DX: M16.0 Bilateral primary osteoarthritis of hip (principal); M47.27 Other spondylosis with radiculopathy, lumbosacral region; M51.362 Other intervertebral disc degeneration, lumbar region with discogenic back pain and lower extremity pain

== ENCOUNTER → 2025-02-27 15:38 | Outpatient (BNVA) | payer MEDICARE, SELFPAY | PROVIDERS: PCP Internal Medicine; Visit Provider Internal Medicine ==

== ENCOUNTER → 2025-04-25 23:59 | Outpatient (BNV) | payer MEDICARE, SELFPAY | PROVIDERS: PCP Internal Medicine; Visit Provider Internal Medicine | DX: R73.03 Prediabetes (principal); G89.29 Other chronic pain; M54.9 Dorsalgia, unspecified | CPT/HCPCS: G0180 ==